=== PATIENT | male | born 1935 | race Two or more races ===

== ENCOUNTER 2018-02-12 18:49 | Inpatient (IN) | payer OTHER ==
--- NOTE | 2018-02-12 21:17 | PDOC ---
History of Present Illness - General Chief Complaint: Pain Stated Complaint: STOMACH PAIN Time Seen by Provider: 02/12/18 21:16 - History of Present Illness Initial Comments: 02/12/18 21:17 82 yo M with h/o HTN, HLD, abdominal surgery ( unspecified~2010), who p/w abdominal pain. Patient reports acute onset of mid-abdominal pain beginning at 1000 AM today. Unable to characterize pain. No identifiable triggers or alleviators. Normal daily BM with no BPR. Denies postprandial pain. Tolerating PO intake. Denies analgesic use. Patient denies N/V, cough, F,C, CP, SOB, urinary complaints, diarrhea, constipation, lightheadedness, weakness, sensory changes. PMHx: as noted above. Denies h/o colonoscopy. H/o trach, and h/o G tube placement with abdominal surgery 2010. Denies chronic NSAID use. ROS: as noted SHx: Distant smoking hx. Tobacco cessation 20 years ago. denies Etoh. Denies IVDA. Denies recent sick contacts or change in diet. Allergies:NKDA Past History - Past Medical History Allergies/Adverse Reactions: Allergies Allergy/AdvReac Type Severity Reaction Status Date / Time No Known Allergies Allergy Verified 02/12/18 19:06 Home Medications: Ambulatory Orders Aspirin [ASA -] 81 mg PO DAILY 02/13/18 Atorvastatin Ca [Lipitor] 10 mg PO HS 02/13/18 Cholecalciferol (Vitamin D3) [Vitamin D3] 50,000 unit PO WEEKLY 02/13/18 Losartan Potassium 50 mg PO DAILY 02/13/18 Metoprolol Succinate [Toprol Xl -] 50 mg PO DAILY 02/13/18 Tamsulosin HCl [Flomax] 0.4 mg PO DAILY 02/13/18 COPD: No HTN: Yes Hypercholesterolemia: Yes Other medical history: GALLIAN BARRE SYNDROM, BPH - Surgical History Abdominal Surgery: Yes (HX OF G.TUBE) Lung Surgery: No (HX OF TRACH) - Suicide/Smoking/Psychosocial Hx Smoking History: Never smoked Have you smoked in the past 12 months: No Information on smoking cessation initiated: No Hx Alcohol Use: No Drug/Substance Use Hx: No Substance Use Type: None Review of Systems - Review of Systems Comments:: 02/12/18 21:17 GENERAL/CONSTITUTIONAL: No fever or chills. No weakness. HEAD, EYES, EARS, NOSE AND THROAT: No change in vision. No ear pain or discharge. No sore throat. CARDIOVASCULAR: No chest pain or shortness of breath RESPIRATORY: No cough, wheezing, or hemoptysis. GASTROINTESTINAL: + Abdominal pain. No nausea, vomiting, diarrhea or constipation. GENITOURINARY: No dysuria, frequency, or change in urination. MUSCULOSKELETAL: No joint or muscle swelling or pain. No neck or back pain. SKIN: No rash NEUROLOGIC: No headache, vertigo, loss of consciousness, or change in strength/ sensation. ENDOCRINE: No increased thirst. No abnormal weight change HEMATOLOGIC/LYMPHATIC: No anemia, easy bleeding, or history of blood clots. ALLERGIC/IMMUNOLOGIC: No hives or skin allergy. *Physical Exam - Vital Signs Last Vital Signs Temp Pulse Resp BP Pulse Ox 98.6 F 52 L 18 146/78 100 02/12/18 19:07 02/12/18 19:07 02/12/18 19:07 02/12/18 19:07 02/12/18 19:07 - Physical Exam Comments: 02/12/18 21:17 GENERAL: Awake, alert, and fully oriented, in no acute distress HEAD: No signs of trauma, normocephalic, atraumatic EYES: PERRLA, EOMI, sclera anicteric, conjunctiva clear ENT: Hearing grossly normal, nares patent, oropharynx clear without exudates. Moist mucosa NECK: Normal ROM, supple, no lymphadenopathy, JVD, or masses LUNGS: No distress, speaks full sentences, clear to auscultation bilaterally HEART: Regular rate and rhythm, normal S1 and S2, no murmurs, rubs or gallops, peripheral pulses normal and equal bilaterally. ABDOMEN: 5 cm vertical midabodminal incision scar (healed), and LUQ 1 mm, horizontal incision scar ( healed). + Midabomdinal ttp. NDS, normoactive bowel sounds. No guarding, no rebound. No masses. Neg CVA ttp. EXTREMITIES : Normal inspection, Normal range of motion, no edema. No clubbing or cyanosis. SKIN: Warm, Dry, normal turgor, no rashes or lesions noted ED Treatment Course - LABORATORY CBC & Chemistry Diagram: 02/12/18 23:45 02/12/18 23:45 Medical Decision Making - Medical Decision Making 02/12/18 21:45 82 yo M with h/o HTN, HLD, abdominal surgery ( unspecified~2010), who p/w abdominal pain. HR ~52, vitals otherwise wnl, AF, A&Ox3. + Midabdominal ttp. Differential includes colitis, diverticulitis, cystitis, AAA, mesenteric ischemia. Low suspicion Ao dissection, SBO. ED Course: CBC, CMP, Lipase EKG NS, Tylenol 02/12/18 22:34 EKG sinus bradycardia 50, LBBB, with nml interval duration and axis. No acute DYLON, STD. 02/13/18 03:04 CT AP: Low grade small bowel obx. 02/13/18 04:03 Patient admitted to med/surg. Dr. Riojas. *DC/Admit/Observation/Transfer Diagnosis at time of Disposition: Small bowel obstruction - Discharge Dispostion Condition at time of disposition: Stable Decision to Admit order: Yes - Referrals Referrals: Cody Looney MD [Primary Care Provider] - - Patient Instructions - Post Discharge Activity
[2018-02-12] MEDS ORDERED: ACETAMINOPHEN 1000 MG/100 ML VIAL (NON FORMULARY) IVPB ONE (21:38)
[2018-02-12] MEDS ORDERED: SODIUM CHLORIDE 1,000 ML IV STA (21:38)
[2018-02-12] MEDS ORDERED: ACETAMINOPHEN INJECTION 100 ML IVPB ONE (23:50)
[2018-02-13] LABS: BASO % 0.5 % (0-2.0); EOS % 0.4 % (0-4.5); HEMATOCRIT 41.8 % (35.4-49); HEMOGLOBIN 14.1 GM/dL (11.7-16.9); LYMPH % 7.7 % (8-40); MCHC 33.6 g/dl (32.0-35.9); MEAN CELL VOLUME 92.1 fl (80-96); MEAN PLT VOLUME 10.1 fl (7.5-11.1); NEUT % 85.4 % (42.8-82.8); PLATELET COUNT 209 K/MM3 (134-434); RBC 4.54 M/mm3 (4.00-5.60); RDW 13.6 % (11.9-15.9); WHITE BLOOD COUNT 11.6 K/mm3 (4.0-10.0)
[2018-02-13 00:40] LABS: ALBUMIN 3.7 g/dl (3.4-5.0); ALK PHOS 93 U/L (45-117); ANION GAP 6 (8-16); BILIRUBIN,TOTAL 0.8 mg/dL (0.2-1.0); BLOOD UREA NITROGEN 19 mg/dL (7-18); CALCIUM 9.3 mg/dL (8.5-10.1); CHLORIDE 103 mmol/L (98-107); CO2 30 mmol/L (21-32); CREATININE 1.1 mg/dL (0.7-1.3); GLUCOSE,RANDOM 125 mg/dL (74-106); SGPT/ALT 23 U/L (12-78); SODIUM 139 mmol/L (136-145)
[2018-02-13 00:42] LABS: POTASSIUM 4.5 mmol/L (3.5-5.1)
[2018-02-13 00:43] LABS: SGOT/AST 28 U/L (15-37)
--- NOTE | 2018-02-13 01:00 | PDOC ---
Attending Attestation - [facility] HPI: 02/13/18 01:10 The patient is a 82 year old male with past medical history of HTN and HLD presents to the emergency department with abdominal pain. The patient presents with an onset of epigastric pain, without aggravation or alleviation factor, since 10:00 am today. Patient states he is able to have normal bowel movement, denies diarrhea, hematochezia or melena. Denies nausea or vomiting. Denies fever, chills, cough or a headache. Denies chest pain shortness of breath. Denies vertigo or dizziness. Denies weakness or numbness. Denies sick contact or change in diet. Denies prior colonoscopy. Denies GI follow up. Allergies: NKDA Social history: Former smoker, quit 20 years ago. Denies alcohol use. Denies recreational drug use. Surgical history: G-Tube and Trach. Abdominal scar, unable to recall what kind of surgery was performed. PCP: Cody Looney MD - Physicial Exam PE: 02/13/18 01:51 GENERAL: Well developed, well nourished. Awake and alert. No acute distress. HEENT: Normocephalic, atraumatic. PERRLA, EOMI. No conjunctival pallor. Sclera are non- icteric. Moist mucous membranes. Oropharynx is clear. NECK: Supple. Full ROM. No JVD. Carotid pulses 2+ and symmetric, without bruits. No thyromegaly. No lymphadenopathy. CARDIOVASCULAR: Regular rate and rhythm. No murmurs, rubs, or gallops. Distal pulses are 2+ and symmetric. PULMONARY: No evidence of respiratory distress. Lungs clear to auscultation bilaterally. No wheezing, rales or rhonchi. ABDOMINAL: Soft. Non-tender. Non-distended. No rebound or guarding. No organomegaly. Normoactive bowel sounds. MUSCULOSKELETAL Normal range of motion at all joints. No bony deformities or tenderness. No CVA tenderness. EXTREMITIES: No cyanosis. No clubbing. No edema. No calf tenderness. SKIN: Warm and dry. Normal capillary refill. No rashes. No jaundice. NEUROLOGICAL: Alert, awake, appropriate. PSYCHIATRIC: Cooperative. Good eye contact. Appropriate mood and affect. - Medical Decision Making 02/13/18 01:11 Documentation prepared by Christy Larson, acting as medical clinic manager for Adia Li MD. <Christy Larson - Last Filed: 02/13/18 01:51> - Resident Resident Name: Marcelo Sullivan - ED Attending Attestation I have performed the following: I have examined & evaluated the patient, The case was reviewed & discussed with the resident, I agree w/resident's findings & plan, Exceptions are as noted - HPI HPI: 02/13/18 00:58 82 yo male p/w diffuse abd pain. Visiting from [place] for past month. Has h/o prior abd surgery but it is not clear why he had previous abdominal surgeries - Medical Decision Making 02/13/18 02:[address] scan ,labs <Adia Li - Last Filed: 02/13/18 02:47>
[2018-02-13 02:51] LABS: URINE APPEARANCE CLEAR; URINE BILIRUBIN NEGATIVE (<2.0 mg/dL); URINE COLOR LTYELLOW; URINE GLUCOSE (UA) NEGATIVE (NEGATIVE); URINE KETONE TRACE (NEGATIVE); URINE LEUK ESTERASE NEGATIVE (NEGATIVE); URINE NITRITE NEGATIVE (NEGATIVE); URINE PROTEIN NEGATIVE (NEGATIVE); URINE UROBILINOGEN NEGATIVE mg/dL (0.2-1.0)
--- NOTE | 2018-02-13 05:56 | PN ---
Teaching Attending Note Name of Resident: Jayme Emerson ATTENDING PHYSICIAN STATEMENT I saw and evaluated the patient. I reviewed the resident's note and discussed the case with the resident. I agree with the resident's findings and plan as documented. SUBJECTIVE: Patient is an 82 year old man with past medical history of HTN, Guillain Hewitt syndrome, prior abdominal surgeries and HLD presenting to the ER with abdominal pain that started today. Pain is epigastric pain, without any aggravating or alleviating factors. Patient states he is able to have normal bowel movement, denies diarrhea, hematochezia or melena. He has no nausea, vomiting, chills, cough, chest pain or shortness of breath. [place] and does not remember why he had abdominal surgeries in the past. Has never had colonoscopy. OBJECTIVE: Alert and in no acute distress. Vital Signs Period Temp Pulse Resp BP Sys/Waldron Pulse Ox Last 24 Hr 97.5 F-98.6 F 52-56 18-18 143-146/77-78 97-100 HEENT: No Jaundice, eye redness or discharge, PERRLA, EOMI. Normocephalic, atraumatic. External ears are normal and hearing is grossly intact. No nasal discharge. Neck: Supple, nontender. No palpable adenopathy or thyromegaly. No JVD Chest: Good effort. Clear to auscultation and percussion. Heart: Regular. No S3, rub or murmur Abdomen: Surgical scars. Mild periumblical tenderness. Not distended, soft, and no HSM. No rebound or guarding. Normoactive bowel sounds. Ext: Peripheral pulses intact. No leg edema. Skin: Warm and dry. No petechiae, rash or ecchymosis. Neuro: Alert. Oriented x3. CN 2-12 grossly intact. Sensation grossly intact in all four extremities and DTR are symmetric. Home Medications Medication Instructions Recorded Aspirin [ASA -] 81 mg PO DAILY 02/13/18 Atorvastatin Ca [Lipitor] 10 mg PO HS 02/13/18 Cholecalciferol (Vitamin D3) 50,000 unit PO WEEKLY 02/13/18 [Vitamin D3] Losartan Potassium 50 mg PO DAILY 02/13/18 Metoprolol Succinate [Toprol Xl -] 50 mg PO DAILY 02/13/18 Tamsulosin HCl [Flomax] 0.4 mg PO DAILY 02/13/18 Abnormal Lab Results 02/12/18 02/12/18 02/13/18 23:45 23:45 02:22 WBC 11.6 H Neutrophils % 85.4 H Lymphocytes % 7.7 L Anion Gap 6 L BUN 19 H Random Glucose 125 H Urine Ketones Trace H ASSESSMENT AND PLAN: 1. Small Bowel Obstruction - CT scan shows low grade small bowel obstruction. Will consult surgery and monitor and treat with analgesic if pain becomes unbearable. His EKG shows bradycardia with LBBB - will repeat EKG to affirm that the changes are not dynamic. There no old EKGs available. Mild leukocytosis and hyperglycemia are likely due to stress. Will trend WBC, get PT/ INR and HbA1c. Give IN NS at 40 ml/hour and keep him NPO. 2. DVT prophylaxis - Heparin 5000u sq tid. 3. Advance directives - Full code
[2018-02-13] MEDS ORDERED: SODIUM CHLORIDE 1,000 ML IV SCH (06:15)
[2018-02-13] MEDS ORDERED: HEPARIN NA (PORCINE) 5,000 UNITS/ML 1ML VIAL SQ SCH (06:15)
[2018-02-13] MEDS ORDERED: PANTOPRAZOLE SODIUM 40 MG VIAL IVPUSH ONE (06:16)
--- NOTE | 2018-02-13 06:26 | HP ---
CHIEF COMPLAINT: PCP: HISTORY OF PRESENT ILLNESS: 82 yo M with h/o HTN, HLD, Angella hinson x2 in 2009 (he had trach and G-tube placed at that time), who p/w abdominal pain. Patient reports acute onset of mid -abdominal pain beginning yesterday morning. Pain was 10/10, sharp and generalized but more prom in mid periumbilical region. No identifiable triggers or alleviators. Normal daily BM with no BPR. Denies postprandial pain. Tolerating PO intake. Denies analgesic use. Patient denies fever,N/V, cough, F,C, CP, SOB, urinary complaints, diarrhea, constipation, lightheadedness, weakness, sensory changes. Pt has never had colonoscopy but was scheduled for one w/ dr rowley, however GI wanted cardio clearance from Dr Contreras PMHx: as noted above. Denies h/o colonoscopy. H/o trach, and h/o G tube placement with abdominal surgery 2010. Denies chronic NSAID use. SHx: Distant smoking hx. Tobacco cessation 20 years ago. denies Etoh. Denies IVDA. Denies recent sick contacts or change in diet. Lives [place] w/ [place] and [address] [place] course was notable for: (1)tylenol, 1L NS (2) (3) Recent Travel: PAST MEDICAL HISTORY: PAST SURGICAL HISTORY: Social History: Smoking: Alcohol: Drugs: Family History: Allergies No Known Allergies Allergy (Verified 02/12/18 19:06) HOME MEDICATIONS: Home Medications Medication Instructions Recorded Aspirin [ASA -] 81 mg PO DAILY 02/13/18 Atorvastatin Ca [Lipitor] 10 mg PO HS 02/13/18 Cholecalciferol (Vitamin D3) 50,000 unit PO WEEKLY 02/13/18 [Vitamin D3] Losartan Potassium 50 mg PO DAILY 02/13/18 Metoprolol Succinate [Toprol Xl -] 50 mg PO DAILY 02/13/18 Tamsulosin HCl [Flomax] 0.4 mg PO DAILY 02/13/18 REVIEW OF SYSTEMS reviewed in hpi PHYSICAL EXAMINATION Vital Signs - 24 hr 02/12/18 02/13/18 19:07 03:33 Temperature 98.6 F 97.5 F L Pulse Rate 52 L Pulse Rate [ 56 L Left] Respiratory 18 18 Rate Blood Pressure 146/78 Blood Pressure 143/77 [Left Arm] O2 Sat by Pulse 100 97 Oximetry (%) GENERAL: Awake, alert, and fully oriented, in no acute distress. HEAD: Normal with no signs of trauma. EYES: Pupils equal, round and reactive to light, extraocular movements intact, sclera anicteric, conjunctiva clear. No lid lag. EARS, NOSE, THROAT: Ears normal, nares patent, oropharynx clear without exudates. Moist mucous membranes. NECK: Normal range of motion, supple without lymphadenopathy, JVD, or masses. LUNGS: mild bibasilar crackles No wheezes, No accessory muscle use. HEART: Regular rate and rhythm, normal S1 and S2 without murmur, rub or gallop. ABDOMEN: Surgical scars midline Soft, nontender, not distended, normoactive bowel sounds, no guarding, no rebound, no masses. No hepatomegaly or splenomegaly. MUSCULOSKELETAL: Normal range of motion at all joints. No bony deformities or tenderness. No CVA tenderness. UPPER EXTREMITIES: 2+ pulses, warm, well-perfused. No cyanosis. No clubbing. No peripheral edema. LOWER EXTREMITIES: 2+ pulses, warm, well-perfused. No calf tenderness. No peripheral edema. NEUROLOGICAL: Cranial nerves II-XII intact. Normal speech. PSYCHIATRIC: Cooperative. Good eye contact. Appropriate mood and affect. SKIN: Warm, dry, normal turgor, no rashes or lesions noted, normal capillary refill. Laboratory Results - last 24 hr 02/12/18 02/12/18 02/12/18 23:45 23:45 23:45 WBC 11.6 H RBC 4.54 Hgb 14.1 Hct 41.8 MCV 92.1 MCH 31.0 MCHC 33.6 RDW 13.6 Plt Count 209 MPV 10.1 Absolute Neuts (auto) 9.9 Neutrophils % 85.4 H Lymphocytes % 7.7 L Monocytes % 6.0 Eosinophils % 0.4 Basophils % 0.5 Nucleated RBC % 0 Sodium 139 Potassium 4.5 Chloride 103 Carbon Dioxide 30 Anion Gap 6 L BUN 19 H Creatinine 1.1 Creat Clearance w eGFR > 60 Random Glucose 125 H Calcium 9.3 Total Bilirubin 0.8 AST 28 ALT 23 Alkaline Phosphatase 93 Total Protein 7.0 Albumin 3.7 Lipase 105 Urine Color Urine Appearance Urine pH Ur Specific Keyes Urine Protein Urine Glucose (UA) Urine Ketones Urine Blood Urine Nitrite Urine Bilirubin Urine Urobilinogen Ur Leukocyte Esterase 02/13/18 02:22 WBC RBC Hgb Hct MCV MCH MCHC RDW Plt Count MPV Absolute Neuts (auto) Neutrophils % Lymphocytes % Monocytes % Eosinophils % Basophils % Nucleated RBC % Sodium Potassium Chloride Carbon Dioxide Anion Gap BUN Creatinine Creat Clearance w eGFR Random Glucose Calcium Total Bilirubin AST ALT Alkaline Phosphatase Total Protein Albumin Lipase Urine Color Ltyellow Urine Appearance Clear Urine pH 7.0 Ur Specific Keyes 1.035 Urine Protein Negative Urine Glucose (UA) Negative Urine Ketones Trace H Urine Blood Negative Urine Nitrite Negative Urine Bilirubin Negative Urine Urobilinogen Negative Ur Leukocyte Esterase Negative ASSESSMENT/PLAN: 82 yo M with h/o HTN, HLD, Guiliane barre x2 in 2009 (he had trach and G-tube placed at that time), who p/w abdominal pain. CT shows SBO. Pt is currently stable but has leukocytosis and has not had a BM Small Bowel Obstruction - CT scan shows low grade small bowel obstruction. - consult surgery and monitor and treat with analgesic if pain becomes unbearable. -EKG shows bradycardia with LBBB, rpt EKG this morning showed no changes -mild leukocytosis and hyperglycemia are likely due to stress. -Will trend WBC, get PT/INR and HbA1c. -Give IN NS at 40 ml/hour and keep him NPO. -hold ACEi prior to surgery -protonix IV FEN - IV NS 40cc/hr - Monitor lytes as needed - NPO for possible surgery Prophylaxis - DVT: heparin SQ Disposition - admit medsur Code status - Full code Visit type - Emergency Visit Emergency Visit: Yes ED Registration Date: 02/13/18 Care time: The patient presented to the Emergency Department on the above date and was hospitalized for further evaluation of their emergent condition. - New Patient This patient is new to me today: Yes Date on this admission: 02/13/18 - Critical Care Critical Care patient: No Hospitalist Screening - Colonoscopy Questionnaire Colonoscopy Questionnaire: Colonoscopy Questionnaire - Patient: 50 - 75 years old and never had a screening colonoscopy: Yes History of colon or rectal polyps, or CA: Unknown History of IBD, Crohn's disease or UC: Unknown History of abdominal radiation therapy as a child: Unknown - Relative: 1 with colon or rectal CA, or polyps at age 60 or younger: Unknown Colon or rectal CA diagnosed at age 45 or younger: Unknown Multiple relatives with colon or rectal CA: Unknown - Outcome: Screening Result: Positive Screen
[2018-02-13] MEDS ORDERED: HEPARIN NA (PORCINE) 5,000 UNITS/ML 1ML VIAL ONE (06:27)
[2018-02-13] MEDS ORDERED: PANTOPRAZOLE SODIUM 40 MG VIAL ONE (06:30)
[2018-02-13] MEDS: SODIUM CHLORIDE 1,000 ML IV SCH ×2 (06:38→10:14)
[2018-02-13 08:08] LABS: BASO % 0.2 % (0-2.0); EOS % 1.2 % (0-4.5); HEMATOCRIT 41.8 % (35.4-49); LYMPH % 13.9 % (8-40); MCH 31.3 pg (25.7-33.7); MCHC 33.5 g/dl (32.0-35.9); MEAN CELL VOLUME 93.5 fl (80-96); MEAN PLT VOLUME 10.2 fl (7.5-11.1); MONO % 9.6 % (3.8-10.2); NEUT % 75.1 % (42.8-82.8); PLATELET COUNT 184 K/MM3 (134-434); RBC 4.46 M/mm3 (4.00-5.60); RDW 13.3 % (11.9-15.9); WHITE BLOOD COUNT 8.2 K/mm3 (4.0-10.0)
[2018-02-13 08:24] LABS: INR 1.08 (0.82-1.09); PROTHROMBIN TIME (PATIENT) 12.2 SEC (9.7-13.0)
[2018-02-13 08:26] LABS: ALBUMIN 3.6 g/dl (3.4-5.0); ALK PHOS 93 U/L (45-117); ANION GAP 7 (8-16); BILIRUBIN,TOTAL 0.7 mg/dL (0.2-1.0); BLOOD UREA NITROGEN 16 mg/dL (7-18); CALCIUM 8.5 mg/dL (8.5-10.1); CHLORIDE 108 mmol/L (98-107); CO2 28 mmol/L (21-32); CREATININE 0.8 mg/dL (0.7-1.3); GLUCOSE,RANDOM 81 mg/dL (74-106); MAGNESIUM 2.1 mg/dL (1.8-2.4); PHOSPHOROUS 3.2 mg/dL (2.5-4.9); POTASSIUM 4.2 mmol/L (3.5-5.1); SGOT/AST 17 U/L (15-37); SGPT/ALT 22 U/L (12-78); SODIUM 143 mmol/L (136-145); TOT PROT 6.6 g/dl (6.4-8.2)
[2018-02-13 08:27] LABS: ACTIVATED PTT 30.5 SECONDS (25.2-36.5)
[2018-02-13] MEDS ORDERED: ASPIRIN 81 MG CHEWABLE TABLETS PO SCH (10:00)
[2018-02-13] MEDS: TAMSULOSIN HCL 0.4 MG CAP.ER.24H (FP) PO SCH (10:13)
--- NOTE | 2018-02-13 11:39 | EKG ---
Test Reason : Blood Pressure : / mmHG Vent. Rate : 049 BPM Atrial Rate : 049 BPM P-R Int : 198 ms QRS Dur : 152 ms QT Int : 496 ms P-R-T Axes : 029 011 056 degrees QTc Int : 448 ms SINUS BRADYCARDIA LEFT BUNDLE BRANCH BLOCK ABNORMAL ECG WHEN COMPARED WITH ECG OF 12-FEB-2018 19:32, NO SIGNIFICANT CHANGE WAS FOUND Confirmed by YULIA KELLY MD ([id number]) on 02/13/2018 11:39:15 AM Referred By: Confirmed By:YULIA KELLY MD
--- NOTE | 2018-02-13 11:45 | EKG ---
Test Reason : Blood Pressure : / mmHG Vent. Rate : 050 BPM Atrial Rate : 050 BPM P-R Int : 202 ms QRS Dur : 150 ms QT Int : 472 ms P-R-T Axes : 037 048 073 degrees QTc Int : 430 ms SINUS BRADYCARDIA LEFT BUNDLE BRANCH BLOCK ABNORMAL ECG NO PREVIOUS ECGS AVAILABLE Confirmed by ROBIN CONWAY, YULIA ([id number]) on 02/13/2018 11:45:11 AM Referred By: Confirmed By:YULIA KELLY MD
--- NOTE | 2018-02-13 11:52 | CONSULT ---
- Consultation REQUESTING PROVIDER: CONSULT REQUEST: We have been asked to surgically evaluate this patient for SBO PCP:Maria Luz Leal HISTORY OF PRESENT ILLNESS: 82yo M presented to the ED with complaint of diffuse abdominal pain x [address] Pt [address] a [address] abd/pel done in the ED with had a wet read which showed SBO. Pt when seen by surgical team at bedside, stated that pain was completely resolved. Pt denies any n/v associated with the pain. Pt states last BM was yesterday and denies passing flatus since yesterday. Pt denies previous history of abd pain. Pt has surgical history of open G tube placement in 2009, but no other abd surgeries. Pt denies previous SBO. PMHx: HTN, Gullain-Huntsburg syndrome 2009 PSHx: tracheostomy, and gastrotomy tube placement Home Medications Medication Instructions Recorded Aspirin [ASA -] 81 mg PO DAILY 02/13/18 Atorvastatin Ca [Lipitor] 10 mg PO HS 02/13/18 Cholecalciferol (Vitamin D3) 50,000 unit PO WEEKLY 02/13/18 [Vitamin D3] Losartan Potassium 50 mg PO DAILY 02/13/18 Metoprolol Succinate [Toprol Xl -] 50 mg PO DAILY 02/13/18 Tamsulosin HCl [Flomax] 0.4 mg PO DAILY 02/13/18 Allergies Allergy/AdvReac Type Severity Reaction Status Date / Time No Known Allergies Allergy Verified 02/12/18 19:06 REVIEW OF SYSTEMS: CONSTITUTIONAL: Absent: fever, chills, diaphoresis, generalized weakness, malaise, loss of appetite, weight change CARDIOVASCULAR: Absent: chest pain, syncope, palpitations, irregular heart rate, lightheadedness , peripheral edema RESPIRATORY: Absent: cough, shortness of breath, dyspnea with exertion, wheezing, stridor, hemoptysis GASTROINTESTINAL: Absent: abdominal pain, abdominal distension, nausea, vomiting, diarrhea, constipation, melena, hematochezia GENITOURINARY: Absent: dysuria, frequency, urgency, hesitancy, hematuria, flank pain, genital pain MUSCULOSKELETAL: Absent: myalgia, arthralgia, joint swelling, back pain, neck pain SKIN: Absent: rash, itching, pallor HEMATOLOGIC/IMMUNOLOGIC: Absent: easy bleeding, easy bruising, lymphadenopathy NEUROLOGIC: Absent: headache, focal weakness, paresthesias, dizziness, unsteady gait, seizure, mental status changes, bladder or bowel incontinence PSYCHIATRIC: Absent: anxiety, depression, suicidal or homicidal ideation, hallucinations. PHYSICAL EXAM: GENERAL: Awake, alert, and fully oriented, in no acute distress. HEAD: Normal with no signs of trauma. EYES: PERRL, sclera anicteric, conjunctiva clear. NECK: Normal ROM, supple without lymphadenopathy, JVD, or masses. LUNGS: Clear to auscultation bilat anteriorly. No wheezes, and no crackles. No accessory muscle use. HEART: Regular rate and rhythm. No murmurs ABDOMEN: Soft, nontender, not distended, normoactive bowel sounds, no guarding, no rebound, no masses. Epigastric midline scar with hernia defect palpated on inferior aspect. MUSCULOSKELETAL: Normal ROM at all joints. No bony deformities or tenderness. No CVA tenderness. UPPER EXTREMITIES: 2+ pulses, warm, well-perfused. No cyanosis. Cap refill <2 seconds. No peripheral edema. LOWER EXTREMITIES: 2+ pulses, warm, well-perfused. No calf tenderness. No peripheral edema. NEUROLOGICAL: Normal speech, gait not observed. PSYCH: Cooperative. Good eye contact. Appropriate mood and affect. SKIN: Warm, dry, normal turgor, no rashes or lesions noted. Vital Signs Temperature 97.5 F L 02/13/18 08:50 Pulse Rate 50 L 02/13/18 08:50 Respiratory Rate 18 02/13/18 08:50 Blood Pressure 145/72 02/13/18 08:50 O2 Sat by Pulse Oximetry (%) 100 02/13/18 08:50 Lab Results WBC 8.2 K/mm3 (4.0-10.0) 02/13/18 07:48 RBC 4.46 M/mm3 (4.00-5.60) 02/13/18 07:48 Hgb 14.0 GM/dL (11.7-16.9) 02/13/18 07:48 Hct 41.8 % (35.4-49) 02/13/18 07:48 MCV 93.5 fl (80-96) 02/13/18 07:48 MCHC 33.5 g/dl (32.0-35.9) 02/13/18 07:48 RDW 13.3 % (11.9-15.9) 02/13/18 07:48 Plt Count 184 K/MM3 (134-434) 02/13/18 07:48 Sodium 143 mmol/L (136-145) 02/13/18 07:48 Potassium 4.2 mmol/L (3.5-5.1) 02/13/18 07:48 Chloride 108 mmol/L (98-107) H 02/13/18 07:48 Carbon Dioxide 28 mmol/L (21-32) 02/13/18 07:48 Anion Gap 7 (8-16) L 02/13/18 07:48 BUN 16 mg/dL (7-18) 02/13/18 07:48 Creatinine 0.8 mg/dL (0.7-1.3) 02/13/18 07:48 Random Glucose 81 mg/dL (74-106) D 02/13/18 07:48 Calcium 8.5 mg/dL (8.5-10.1) 02/13/18 07:48 Blood Type O POSITIVE 02/13/18 08:10 Antibody Screen Negative 02/13/18 08:10 INR 1.08 (0.82-1.09) 02/13/18 07:48 Problem List - Problems (1) Incisional hernia, incarcerated Assessment/Plan: Plan -pt appears to have an incisional hernia, which was most likely incarcerated with bowel. The hernia has appeared to have reduced and pt completely asymptomatic. -will get follow up abd x-ray and if umremarkable advance to clears -schedule pt for surgical repair of hernia tomorrow, pt agrees with plan -NPO after midnight, medical clearance Code(s): K43.0 - INCISIONAL HERNIA WITH OBSTRUCTION, WITHOUT GANGRENE
--- NOTE | 2018-02-13 12:21 | PN ---
Progress Note (short form) - Note Progress Note: Attending Surgeon Patient seen and evaluated; chart reviewed; concur w/ a/p as outlined by MARTY Forte; plan d/w patient and his daughter and in [place]; a/a/u by all ; r/b/t/a/'s to surgery discussed; for OR 02/14/18. Andrea Zhou MD FACS
[2018-02-13 13:22] VITALS: BMI 23.8
[2018-02-13] MEDS ORDERED: ATORVASTATIN CA 10 MG TABLET (FP) PO SCH (22:00)
[2018-02-14] MEDS ORDERED: BUPIVACAINE HCL/PF (5 MG/ML) 30 ML VIAL IJ ONE
[2018-02-14] MEDS: SODIUM CHLORIDE 1,000 ML IV SCH (09:46)
[2018-02-14] MEDS: TAMSULOSIN HCL 0.4 MG CAP.ER.24H (FP) PO SCH (09:46)
--- NOTE | 2018-02-14 10:14 | PN ---
Physical Exam: SUBJECTIVE: Patient seen and examined. Surgery later today. Denies pain. OBJECTIVE: Vital Signs Period Temp Pulse Resp BP Sys/Waldron Pulse Ox Last 24 Hr 97.1 F-98.4 F 56-65 20-20 107-152/66-70 98 General/Neuro: Awake, alert, oriented x 3 Pulm: Lungs CTA CV: S1, S2, rrr Abd: well-healed midline surgical scar, no palpable masses, not tender Ext: 2+ pulses, warm, well-perfused CBCD WBC 8.2 K/mm3 (4.0-10.0) 02/13/18 07:48 RBC 4.46 M/mm3 (4.00-5.60) 02/13/18 07:48 Hgb 14.0 GM/dL (11.7-16.9) 02/13/18 07:48 Hct 41.8 % (35.4-49) 02/13/18 07:48 MCV 93.5 fl (80-96) 02/13/18 07:48 MCHC 33.5 g/dl (32.0-35.9) 02/13/18 07:48 RDW 13.3 % (11.9-15.9) 02/13/18 07:48 Plt Count 184 K/MM3 (134-434) 02/13/18 07:48 MPV 10.2 fl (7.5-11.1) 02/13/18 07:48 CMP Sodium 143 mmol/L (136-145) 02/13/18 07:48 Potassium 4.2 mmol/L (3.5-5.1) 02/13/18 07:48 Chloride 108 mmol/L (98-107) H 02/13/18 07:48 Carbon Dioxide 28 mmol/L (21-32) 02/13/18 07:48 Anion Gap 7 (8-16) L 02/13/18 07:48 BUN 16 mg/dL (7-18) 02/13/18 07:48 Creatinine 0.8 mg/dL (0.7-1.3) 02/13/18 07:48 Creat Clearance w eGFR > 60 (>60) 02/13/18 07:48 Calcium 8.5 mg/dL (8.5-10.1) 02/13/18 07:48 Total Bilirubin 0.7 mg/dL (0.2-1.0) 02/13/18 07:48 AST 17 U/L (15-37) D 02/13/18 07:48 ALT 22 U/L (12-78) 02/13/18 07:48 Alkaline Phosphatase 93 U/L (45-117) 02/13/18 07:48 Total Protein 6.6 g/dl (6.4-8.2) 02/13/18 07:48 Albumin 3.6 g/dl (3.4-5.0) 02/13/18 07:48 Active Medications Generic Name Dose Route Start Last Admin Trade Name Freq PRN Reason Stop Dose Admin Atorvastatin Calcium 10 mg 02/13/18 22:00 02/13/18 21:18 Lipitor - PO 10 mg HS BARBIE Administration Ergocalciferol 50,000 unit 02/15/18 10:00 Drisdol - PO Q7D@1000 BARBIE Sodium Chloride 1,000 mls @ 40 mls/hr 02/13/18 06:26 02/14/18 09:46 Normal Saline - IV 40 mls/hr ASDIR BARBIE Administration Metoprolol Succinate 50 mg 02/13/18 10:00 02/14/18 09:46 Toprol Xl - PO 50 mg DAILY BARBIE Administration Tamsulosin HCl 0.4 mg 02/13/18 08:30 02/14/18 09:46 Flomax - PO 0.4 mg DAILY@0830 BARBIE Administration ASSESSMENT/PLAN 82 year-old male with a PMH signifiant for HTN, HLD, Guiliane [place] x 2 in 2009 (had trach and G-tube placed at that time, reversed), who p/w abdominal pain. Admitted for SBO and incarcerated incisional hernia. Small Bowel Obstruction --CT scan shows low grade small bowel obstruction, likely incarcerated incisional hernia --surgery today Hypertension --BP stable --continue Toprol XL Hyperlipidemia --continue atorvastatin FEN Fluids: NS @ 40mL/hr Electrolytes: replete as indicated Nutrition: NPO DVT prophylaxis: SCDs Dispo: continues to require inpatient care. Full code. Visit type - Emergency Visit Emergency Visit: Yes ED Registration Date: 02/13/18 Care time: The patient presented to the Emergency Department on the above date and was hospitalized for further evaluation of their emergent condition. - New Patient This patient is new to me today: Yes Date on this admission: 02/14/18 - Critical Care Critical Care patient: No
[2018-02-14] MEDS ORDERED: PROPOFOL 20 ML ONE (14:08)
[2018-02-14] MEDS ORDERED: MIDAZOLAM HCL 2 MG/2 ML SINGLE DOSE VIAL ONE (14:08)
[2018-02-14] MEDS ORDERED: ROCURONIUM BROMIDE 50 MG/5 ML VIAL ONE (14:08)
[2018-02-14] MEDS ORDERED: LIDOCAINE HCL/PF 2% SDV 5ML VIAL ONE (14:10)
[2018-02-14] MEDS ORDERED: BUPIVACAINE HCL/PF 0.5% (5MG/ML) 10 ML VIAL ONE (14:56)
[2018-02-14] MEDS ORDERED: DEXAMETHASONE SOD PHOSPHATE 4 MG/1 ML VIAL ONE (14:57)
[2018-02-14] MEDS ORDERED: KETOROLAC TROMETHAMINE 30 MG/1 ML VIAL ONE (15:25)
[2018-02-14] MEDS ORDERED: GLYCOPYRROLATE 0.2 MG/1 ML VIAL ONE (15:31)
[2018-02-14] MEDS ORDERED: NEOSTIGMINE METHYLSULFATE 0.5 MG/ML - 10 ML MDV ONE (15:32)
--- NOTE | 2018-02-14 15:52 | OP ---
Operative Note - Note: Operative Date: 02/14/18 Pre-Operative Diagnosis: Incarcerated incisional hernia Operation: Incarcerated incisional hernia repair Surgeon: Andrea Zhou Beamster: Sergo Forte Anesthesiologist/COMPLIANCE PARALEGAL: Donell Avila Anesthesia: General Estimated Blood Loss (mls): 10 Fluid Volume Replaced (mls): 600 Operative Report Dictated: Yes
[2018-02-14] MEDS ORDERED: PROMETHAZINE HCL 25 MG/1 ML VIAL IVPB PRN (15:53)
[2018-02-14] MEDS ORDERED: ONDANSETRON 4 MG/2 ML VIAL IVPUSH PRN (15:53)
--- NOTE | 2018-02-14 15:53 | SURG ---
Surgery Residential Insurance Inspector Note Residential Insurance Inspector: Sergo Forte PA-C Date of Service: 02/14/18 Diagnosis: Incarcerated incisional hernia Procedure: incarcerated incisional hernia repair I was present for the entirety of the operative procedure. For further detail, please refer to operative report.
[2018-02-14] MEDS ORDERED: LACTATED RINGERS SOLUTION 1,000 ML IV SCH (16:00)
[2018-02-14] MEDS ORDERED: SODIUM CHLORIDE 1,000 ML IV SCH (17:10)
[2018-02-14] MEDS ORDERED: ATORVASTATIN CA 10 MG TABLET (FP) PO SCH (22:00)
--- NOTE | 2018-02-15 08:13 | PN ---
Progress Note (short form) - Note Progress Note: POD #1 Alert. Sitting on edge of bed eating breakfast. No acute events since surgery per RN notes. Mild incisional tenderness. Adequate pain control via prn meds. He 's been oob and ambulating unassisted. Voiding spontaneously. Passing flatus. Denies n/v/f/c, CP or SOB. Last Vital Signs Temp Pulse Resp BP Pulse Ox 98.0 F 60 14 114/53 98 02/15/18 05:00 02/15/18 05:00 02/15/18 05:00 02/15/18 05:00 02/14/18 21:00 Gen: alert. nad Abd: midline incision with kenzie intact. LE: soft. nt bilat Problem List - Problems (1) Incisional hernia, incarcerated Assessment/Plan: Cont oob and ambulate Incentive spirometer Diet as tolerated Dressing changed on rounds. No further surgical intervention. If tolerates diet, is cleared for discharge from a surgery. --> patient wants to go home today On behalf of Dr. Zhou, thank you for the opportunity to participate in your patient's care Code(s): K43.0 - INCISIONAL HERNIA WITH OBSTRUCTION, WITHOUT GANGRENE
[2018-02-15 08:21] VITALS: BP 137/73; PULSE 51; TEMP 97.9
[2018-02-15] MEDS ORDERED: TAMSULOSIN HCL 0.4 MG CAP.ER.24H (FP) PO SCH (08:30)
[2018-02-15] MEDS ORDERED: PT OWN MED DRAWER 7, Y5N ONE (09:57)
[2018-02-15] MEDS ORDERED: ERGOCALCIFEROL (VITAMIN D2) 50,000 UNIT CAPSULE (FP) PO SCH (10:00)
[2018-02-15] MEDS: ERGOCALCIFEROL (VITAMIN D2) 50,000 UNIT CAPSULE (FP) PO SCH ×2 (10:15→11:20)
--- NOTE | 2018-02-15 12:22 | OP ---
DATE OF OPERATION: 02/14/2018 PREOPERATIVE DIAGNOSIS: Incisional hernia status post incarceration. POSTOPERATIVE DIAGNOSIS: Incisional hernia status post incarceration. PROCEDURE: Repair incisional hernia. SURGEON: Andrea Zhou MD ANALYSIS TESTER: Sergo Forte PA-C ANESTHESIA: General. OPERATIVE FINDINGS: There was an approximately 2-cm defect in the fascia of the upper midline incision approximately containing partially incarcerated omentum and preperitoneal fat. Distal to this defect, the fascia was attenuated and a smaller hernia was present. The rest of the findings were unremarkable. DESCRIPTION OF PROCEDURE: The patient was placed on the operating table in the supine position, and after the induction of general anesthesia and placement of sequential compression devices on the patients lower extremities, the abdomen was prepped with ChloraPrep and draped in sterile fashion. A time-out was taken. An incision made through the previous scar using a scalpel was taken down through subcutaneous tissue until the fascial defect was identified. The partially incarcerated preperitoneal fat was contained within the sac, which was opened, and the fat and sac excised and sent for pathological examination. Adhesed omentum to the abdominal wall was lysed using blunt and sharp dissection, and then, the defect extended distally to encompass approximately 3/4 of the old fascial incision to create one defect. Next, the defect was closed using continuous No. 1 Ti-Cron suture. Hemostasis was checked for and noted to be good, and the wound was copiously irrigated with sterile saline. Then, 0.5% Marcaine and 1% Xylocaine in equal concentration was infiltrated into the operative field, and the skin edges reapproximated using surgical kenzie. Dry sterile dressings were placed, and the procedure terminated at this point, and the patient aroused from general anesthesia and transferred to the post-anesthesia care unit in stable condition, awake and alert. ESTIMATED BLOOD LOSS: 10 mL. REPLACEMENTS: Crystalloid. DRAINS: None. SPECIMENS: Hernia sac and fat and omentum to Pathology. I, Andrea Zhou, was physically present in the operating room from the time the patient was placed on the operating table until he was transferred to the post-anesthesia care unit in my accompaniment. MD ESTEBAN Weems/[id number] MTDD
--- NOTE | 2018-02-15 12:27 | DS ---
Physical Examination Vital Signs: Vital Signs Temperature 97.9 F 02/15/18 08:20 Pulse Rate 51 L 02/15/18 08:20 Respiratory Rate 16 02/15/18 08:20 Blood Pressure 137/73 02/15/18 08:20 O2 Sat by Pulse Oximetry (%) 98 02/14/18 21:00 Labs: CBC, BMP 02/13/18 07:48 02/13/18 07:48 Discharge Summary Reason For Visit: SMALL BOWEL OBSTRUCTION Current Active Problems Incisional hernia, incarcerated (Acute) Small bowel obstruction (Acute) Condition: Improved - Instructions Diet, Activity, Other Instructions: Dr. Zhou Discharge Instructions Dear IRVIN HERNANDEZ, Post Operative Instructions Physical activity Resume your normal everyday activity as tolerated no heavy lifting or exercise until seen by your surgeon. You may walk unlimited amounts of and climb stairs. You may resume driving the car when you feel safe and comfortable behind the wheel. Wound care If you have a bandage, leave it on, and keep dry for 48 - 72 hours. After that time discard the outer bandage. If there are tapes on the skin under the outer bandage, leave them in place. They will peel off in the next 7 to 10 days. Do Not peel them off. You may shower 2 days after surgery. If there are tapes present on the skin, they can get wet. Diet There are no dietary restrictions. Eat healthy, high-fiber foods. Drink 6 to 8 glasses of liquid each day. This will assist in keeping your bowels are regular. Pain management You may take Tylenol or acetaminophen or Ibuprofen (for example, Motrin, Advil etc.) Any pain prescription medication ordered should be taken as prescribed for moderate to severe pain. Call Dr. Zhou for any of the following: Severe pain not relieved by medication Fever of 101 or higher Excessive bleeding or drainage on dressing Inability to urinate Call the office at [phone] for a post operative appointment in 7 - 10 days. Referrals: Cody Looney MD [Primary Care Provider] - 1 Week Andrea Zhou MD [Staff Physician] - (Please follow-up with surgery within 2 week for your post-op visit and staple removal ) Disposition: HOME - Home Medications Comprehensive Discharge Medication List: Ambulatory Orders Aspirin [ASA -] 81 mg PO DAILY 02/13/18 Atorvastatin Ca [Lipitor] 10 mg PO HS 02/13/18 Cholecalciferol (Vitamin D3) [Vitamin D3] 50,000 unit PO WEEKLY 02/13/18 Losartan Potassium 50 mg PO DAILY 02/13/18 Metoprolol Succinate [Toprol XL -] 50 mg PO DAILY 02/13/18 Tamsulosin HCl [Flomax -] 0.4 mg PO DAILY 02/13/18
--- NOTE | 2018-02-19 09:54 | PATH ---
Surgical Pathology Report Patient Name: IRVIN ROTH Med. Rec. #: [id number] /Age/Gender: 1935 (Age: 82) / M Account: [id number] Location: [address] [place] [address]/[facility] Taken: 02/14/2018 Received: 02/15/2018 Reported: 02/19/2018 Physicians: Ian Zhou MD Specimen(s) Received HERNIA SAC AND FAT Clinical History Incisional hernia Final Diagnosis HERNIA SAC AND FAT, REPAIR: HERNIA SAC AND ADIPOSE TISSUE. Electronically Signed Addis Pérez M.D. Gross Description Received in formalin labeled "hernia sac and fat," is a 4.5 x 3.0 x 1.3 cm portion of yellow, lobulated adipose tissue with attached fibromembranous tissue. No areas of hemorrhage or necrosis are identified. Label Maker sections are submitted in one cassette. /02/15/2018 saudi/02/15/2018
== END 2018-02-15 14:12 | disposition home or self-care (01) | DRG 227 ==
LOC: JER 18:49 → JERBED 02-13 03:07 → UNDOADMIN 02-13 04:14 → JERBED 02-13 04:14 → J6S 02-13 09:40
PROVIDERS: ADMIT Internal Medicine; ATTEND Registered Nurse
PROC: 0DNU0ZZ Release Omentum, Open Approach (ICD-10-PCS; 2018-02-14)
PROC: 0WQF0ZZ Repair Abdominal Wall, Open Approach (ICD-10-PCS; principal; 2018-02-14 14:00)
DX: K43.0 Incisional hernia with obstruction, without gangrene (principal); I44.7 Left bundle-branch block, unspecified; E78.5 Hyperlipidemia, unspecified; I10 Essential (primary) hypertension; K66.0 Peritoneal adhesions (postprocedural) (postinfection); R73.9 Hyperglycemia, unspecified; D72.829 Elevated white blood cell count, unspecified; G61.0 Guillain-Barre syndrome
CPT/HCPCS: 36415; 71046-TC-FY; 74177-TC; 80053; 81003; 83036; 83690; 83735; 84100; 85025; 85610; 85730; 86850; 86900; 86901; 87086; 88302-TC; 93005; 93010; 99282-25; J0131; J1644; J7030

== ENCOUNTER 2018-08-19 01:55 | Emergency (ER) | payer OTHER ==
--- NOTE | 2018-08-19 02:09 | PDOC ---
History of Present Illness - General Chief Complaint: SIRS, Suspected/Possible Stated Complaint: SICK/NOT FEELING WELL Time Seen by Provider: 08/19/18 02:09 History Source: Patient, Family (Son) Exam Limitations: No Limitations - History of Present Illness Initial Comments: Pt is an 82 yo M, with PMH of HTN, HLD, Guillain-[place] (post viral infection, 2005), and SBO/incarcerated hernia (January 2018), who is presenting with complaints of rigors and "not feeling well" since 11 pm this evening. Pt went to urinate in the bathroom, and suddenly felt light-headed. He went back to the bedroom to lie down, and his family members called EMS. Pt states he has baseline mild dysuria, which is being treated with flomax (for BPH). Pt did not take any pain control medication prior to presentation. Pt denies any headache, vision changes, syncope, chest pain, palpitations, SOB, nausea/vomiting, abdominal pain, hematuria/urgency/frequency, diarrhea/constipation, or leg swelling. Social: Remote cigarette smoker history, denies alcohol or drug use. Pt denies any recent travel or sick contacts. Surgical: SBO/incarcerated hernia repair. Family: no relevant history. 08/19/18 03:38 Past History - Travel Traveled outside of the country in the last 30 days: No Close contact w/someone who was outside of country & ill: No - Past Medical History Allergies/Adverse Reactions: Allergies Allergy/AdvReac Type Severity Reaction Status Date / Time No Known Allergies Allergy Verified 08/19/18 02:42 Home Medications: Ambulatory Orders Aspirin [ASA -] 81 mg PO DAILY 02/13/18 Atorvastatin Ca [Lipitor] 10 mg PO HS 02/13/18 Cholecalciferol (Vitamin D3) [Vitamin D3] 50,000 unit PO WEEKLY 02/13/18 Losartan Potassium 50 mg PO DAILY 02/13/18 Metoprolol Succinate [Toprol XL -] 50 mg PO DAILY 02/13/18 Tamsulosin HCl [Flomax -] 0.4 mg PO DAILY 02/13/18 Cardiac Disorders: No Hx Myocardial Infarction: No HTN: Yes Hypercholesterolemia: Yes - Surgical History Abdominal Surgery: Yes (Hx. of Gastrostomy tube 2009) GI Surgery: Yes (SBO) Lung Surgery: No (HX OF TRACH) - Suicide/Smoking/Psychosocial Hx Smoking History: Never smoked Have you smoked in the past 12 months: No Hx Alcohol Use: No Drug/Substance Use Hx: No Substance Use Type: None Hx Substance Use Treatment: No Review of Systems - Review of Systems Able to Perform ROS?: Yes Is the patient limited Maori proficient: No Constitutional: Yes: Chills, Fever (subjective/rigors), Weight Stable. No: Diaphoresis, Loss of Appetite, Malaise, Night Sweats, Weakness HEENTM: No: Blurred Vision, Double Vision, Nose Congestion, Throat Pain, Difficulty Swallowing Respiratory: No: Cough, Orthopnea, Shortness of Breath Cardiac (ROS): Yes: Lightheadedness. No: Chest Pain, Edema, Irregular Heart Rate, Palpitations, Syncope, Chest Tightness ABD/GI: No: Abd. Pain w/ defecation, Blood Streaked Bowels, Constipated, Diarrhea, Nausea, Poor Appetite, Poor Fluid Intake, Rectal Bleeding, Vomiting, Abdominal cramping : Yes: Burning, Dysuria (baseline, BPH). No: Discharge, Frequency, Flank Pain , Hematuria, Incontinence, Pain, Urgency Musculoskeletal: No: Back Pain, Joint Pain Integumentary: No: Rash Neurological: No: Headache, Numbness, Weakness, Unsteady Gait, Ataxia, Dizziness Psychiatric: No: Sleep Pattern Change, Change in Appetite Endocrine: No: Increased Urine, Change in Weight Hematologic/Lymphatic: No: Anemia, Blood Clots, Easy Bleeding, Easy Bruising All Other Systems: Reviewed and Negative *Physical Exam - Physical Exam General Appearance: Yes: Nourished, Appropriately Dressed. No: Apparent Distress HEENT: positive: EOMI, JOÃO, Normal ENT Inspection, Normal Voice, Pharynx Normal , Hearing Grossly Normal. negative: Scleral Icterus (R), Scleral Icterus (L), Pharyngeal Erythema, Tonsillar Exudate, Tonsillar Erythema, Rhinorrhea Neck: positive: Trachea midline, Normal Thyroid, Supple. negative: Tender, Rigid, Lymphadenopathy (R), Lymphadenopathy (L), Rigidity Respiratory/Chest: positive: Lungs Clear, Normal Breath Sounds. negative: Chest Tender, Respiratory Distress, Accessory Muscle Use, Crackles, Wheezing Cardiovascular: positive: Regular Rhythm, Regular Rate, S1, S2. negative: Edema , JVD, Murmur Vascular Pulses: Carotid (R): 4+, Carotid (L): 4+ Gastrointestinal/Abdominal: positive: Normal Bowel Sounds, Flat, Soft. negative : Tender, Organomegaly, Pulsatile Mass, Distended, Guarding, Rebound Male Genitalia: positive: normal genitalia. negative: testicular tenderness, inguinal hernia Rectal Exam: positive: deferred Lymphatic: negative: Adenopathy, Tenderness Musculoskeletal: positive: Normal Inspection. negative: CVA Tenderness, Vertebral Tenderness Extremity: positive: Normal Capillary Refill, Normal Inspection, Normal Range of Motion, Pelvis Stable. negative: Tender, Pedal Edema Integumentary: positive: Normal Color, Dry, Warm. negative: Jaundice, Clammy, Diaphoresis, Rash Neurologic: positive: marble machine tender II-XII NML intact, Fully Oriented, Alert, Normal Mood/ Affect, Normal Response, Motor Strength 5/5. negative: EOM Palsy, Facial Droop , Sensory Deficit, Finger to Nose, Confused ED Treatment Course - LABORATORY CBC & Chemistry Diagram: 08/19/18 04:30 08/19/18 04:30 Medical Decision Making - Medical Decision Making Pt was seen at bedside, also will be seen by attending Dr. Bettencourt. Pt presenting with complaints of rigors and "not feeling well" since 11 pm this evening. Pt went to urinate in the bathroom, and suddenly felt light-headed. He went back to the bedroom to lie down, and his family members called EMS. Pt states he has baseline mild dysuria, which is being treated with flomax (for BPH). Pt did not take any pain control medication prior to presentation. Pt denies any headache, vision changes, syncope, chest pain, palpitations, SOB, nausea/vomiting, abdominal pain, hematuria/urgency/frequency, diarrhea/constipation, or leg swelling. Vitals stable, pt afebrile. PE showed pt alert and oriented. marble machine tender generally intact, muscular strength and sensation intact. Clear heart and lung sounds, no JVD, b/l pedal edema, or heart murmur. No abdominal or CVA tenderness to palpation, no rebound, no guarding. Considering sepsis (UTI, viral infection/influenza), vs electrolyte abnormalities vs ACS. Ordered work-up including CBC, CMP, lactic, Mg, cardiac profile, ECG, UA, urine culture. Provided 500 mg IV NS for improvement of dehydration. Will continue to reassess pt and monitor for symptomatic improvement. 08/19/18 03:20 Pt sleeping comfortably. Pt provided urine for UA. CBC WNL, no increased WBC Lactic 1.7 Pending UA and CMP. 08/19/18 05:34 CMP generally WNL. Mg 1.7. UA negative for infection. Providing 2 g IV Mg (repletion). Ordered PA/Lat chest x-ray to r/o infection/ infiltrates. 08/19/18 06:01 Chest x-ray negative for acute pathology. Considering normal lab results and imaging, pt can be discharged to home with follow-up. Pt advised to follow-up with PCP in 1-2 days. Strict return precautions provided with pt understanding. 08/19/18 06:47 *DC/Admit/Observation/Transfer Diagnosis at time of Disposition: Light headedness, Pre-syncope - Discharge Dispostion Disposition: HOME Condition at time of disposition: Good Decision to Admit order: No - Referrals Referrals: Cody Looney MD [Primary Care Provider] - - Patient Instructions Printed Discharge Instructions: DI for Syncope in Adults (Fainting) Additional Instructions: You were seen in the ER today for light-headedness. The results of your labs and imaging today were normal. Please follow-up with your primary care doctor within 1-2 days to discuss your visit and make sure your symptoms have improved. Please return to the ER if you have any worsening light-headedness or dizziness, development of fevers or chills that does not improve with tylenol or ibuprofen, loss of consciousness, inability to tolerate food or fluids, confusion, or any other concerns. - Post Discharge Activity
--- NOTE | 2018-08-19 02:26 | PDOC ---
Attending Attestation - Resident Resident Name: Kayce Lomeli - ED Attending Attestation I have performed the following: I have examined & evaluated the patient, The case was reviewed & discussed with the resident, I agree w/resident's findings & plan - HPI HPI: 08/19/18 06:14 Pt comes with generalized malaise. No clear complaints. - Physicial Exam PE: 08/19/18 06:15 Agree with resident. Pt has minimal pitting edema in the ankles. Rest of exam normal. Pt looks great. - Medical Decision Making 08/19/18 06:15 Labs normal; EKG LBBB (old) flu culture normal; UA normal VSS CXR will be done. IF CXR NL, he will go home. 08/19/18 06:26 CXR normal; he will be discharged home
[2018-08-19 02:42] VITALS: BP 126/77; PULSE 64; TEMP 97; BMI 26.6
[2018-08-19] MEDS ORDERED: SODIUM CHLORIDE 500 ML IV STA (03:21)
[2018-08-19 04:46] LABS: BASO % 0.3 % (0-2.0); EOS % 0.6 % (0-4.5); HEMATOCRIT 37.5 % (35.4-49); LYMPH % 11.4 % (8-40); MCH 31.7 pg (25.7-33.7); MCHC 34.6 g/dl (32.0-35.9); MEAN CELL VOLUME 91.5 fl (80-96); MEAN PLT VOLUME 10.1 fl (7.5-11.1); MONO % 12.1 % (3.8-10.2); NEUT % 75.6 % (42.8-82.8); PLATELET COUNT 219 K/MM3 (134-434); RDW 13.4 % (11.9-15.9); WHITE BLOOD COUNT 7.3 K/mm3 (4.0-10.0)
[2018-08-19 05:03] LABS: INR 1.1 (0.83-1.09)
[2018-08-19 05:38] LABS: ALBUMIN 3.3 g/dl (3.4-5.0); ALK PHOS 80 U/L (45-117); ANION GAP 10 MMOL/L (8-16); BILIRUBIN,TOTAL 0.7 mg/dL (0.2-1); BLOOD UREA NITROGEN 16 mg/dL (7-18); CALCIUM 8.6 mg/dL (8.5-10.1); CHLORIDE 107 mmol/L (98-107); CO2 27 mmol/L (21-32); CREATININE 1.1 mg/dL (0.55-1.3); GLUCOSE,RANDOM 95 mg/dL (74-106); MAGNESIUM 1.7 mg/dL (1.8-2.4); POTASSIUM 3.8 mmol/L (3.5-5.1); SGOT/AST 29 U/L (15-37); SGPT/ALT 36 U/L (13-61); SODIUM 144 mmol/L (136-145); TOT PROT 6.2 g/dl (6.4-8.2)
[2018-08-19 05:39] LABS: URINE APPEARANCE CLEAR; URINE BILIRUBIN NEGATIVE (<2.0 mg/dL); URINE COLOR LTYELLOW; URINE GLUCOSE (UA) NEGATIVE (NEGATIVE); URINE KETONE 1+ (NEGATIVE); URINE LEUK ESTERASE NEGATIVE (NEGATIVE); URINE NITRITE NEGATIVE (NEGATIVE); URINE PROTEIN NEGATIVE (NEGATIVE); URINE UROBILINOGEN NEGATIVE mg/dL (0.2-1.0)
[2018-08-19] MEDS ORDERED: MAGNESIUM SULF 50% (8.12 MEQ/2 ML-1 GM VIAL) IVPB ONE (06:01)
[2018-08-19] MEDS ORDERED: MAGNESIUM 1GM/D5W - 2 GM/200 ML IVPB IVPB ONE (06:38)
--- NOTE | 2018-08-19 11:09 | EKG ---
Test Reason : Blood Pressure : / mmHG Vent. Rate : 073 BPM Atrial Rate : 073 BPM P-R Int : 180 ms QRS Dur : 154 ms QT Int : 454 ms P-R-T Axes : 050 036 065 degrees QTc Int : 500 ms NORMAL SINUS RHYTHM LEFT BUNDLE BRANCH BLOCK ABNORMAL ECG WHEN COMPARED WITH ECG OF 13-FEB-2018 05:55, VENT. RATE HAS INCREASED BY 24 BPM NOTE QT Confirmed by SHILA FREY MD ([id number]) on 08/19/2018 11:09:14 AM Referred By: Confirmed By:SHILA FREY MD
== END 2018-08-19 07:13 | disposition home or self-care (01) ==
LOC: JER 01:55
PROC: 3E033GC Introduction of Other Therapeutic Substance into Peripheral Vein, Percutaneous Approach (ICD-10-PCS; principal; 2018-08-19)
DX: R55 Syncope and collapse (principal); I10 Essential (primary) hypertension; E78.00 Pure hypercholesterolemia, unspecified; N40.0 Benign prostatic hyperplasia without lower urinary tract symptoms; Z87.19 Personal history of other diseases of the digestive system
CPT/HCPCS: 36415; 71046-TC-FY; 80053; 81003; 82550; 83605; 83735; 84484; 85025; 85610; 86850; 86900; 86901; 87086; 87804; 93005; 93010; 96374; 99281-25; J7030

== ENCOUNTER 2021-12-21 17:08 | Inpatient (IN) | payer OTHER ==
[2021-12-21] MEDS ORDERED: FAMOTIDINE 20 MG/50 ML IVPB 20 MG in PREMIX 50 IVPB ONE (17:51)
[2021-12-21] MEDS ORDERED: MAG HYDROX/AL HYDROX/SIMETH -MYLANTA- ORAL SUSPENSION PO ONE (17:51)
[2021-12-21] MEDS ORDERED: FAMOTIDINE 20 MG/50 ML IVPB 20 MG/50 ML MG IVPB ONE (18:11)
[2021-12-21 18:34] LABS: BASO % 0.1 % (0-2.0); EOS % 0.4 % (0-4.5); HEMATOCRIT 41.1 % (35.4-49); LYMPH % 5.3 % (8-40); MCH 28.8 pg (25.7-33.7); MCHC 34.1 g/dl (32.0-35.9); MEAN CELL VOLUME 84.5 fl (80-96); MEAN PLT VOLUME 9.3 fl (7.5-11.1); MONO % 6.1 % (3.8-10.2); NEUT % 88.1 % (42.8-82.8); PLATELET COUNT 339 10^3/uL (134-434); RBC 4.86 M/mm3 (4.00-5.60); RDW 14.1 % (11.9-15.9); WHITE BLOOD COUNT 9.9 K/mm3 (4.0-10.0)
[2021-12-21] MEDS ORDERED: MAG HYDROX/AL HYDROX/SIMETH 30 ML UNIT-DOSE CUP ONE (18:45)
[2021-12-21 19:09] LABS: LACTIC ACID 2.9 mmol/L (0.4-2.0)
[2021-12-21] MEDS ORDERED: SODIUM CHLORIDE 500 ML IV STA ×2 (21:08→23:05)
[2021-12-21 21:27] LABS: CHLORIDE 102 mmol/L (98-107); SODIUM 140 mmol/L (136-145)
[2021-12-21 21:30] LABS: CALCIUM 8.8 mg/dL (8.5-10.1); GLUCOSE,RANDOM 184 mg/dL (74-106); LIPASE 1007 U/L (73-393)
[2021-12-21 21:31] LABS: ALBUMIN 3.2 g/dl (3.4-5.0); BLOOD UREA NITROGEN 24.1 mg/dL (7-18); CO2 30 mmol/L (21-32)
[2021-12-21 21:33] LABS: CREATININE 1.3 mg/dL (0.55-1.3); SGOT/AST 488 U/L (15-37); SGPT/ALT 305 U/L (13-61)
[2021-12-21 21:35] LABS: BILIRUBIN,TOTAL 2.2 mg/dL (0.2-1)
[2021-12-21 21:36] LABS: ALK PHOS 107 U/L (45-117)
[2021-12-21 21:37] LABS: ANION GAP 8 MMOL/L (8-16)
[2021-12-21] MEDS ORDERED: KCL 10 MEQ IVPB 10 MEQ/100 ML INFUS.BAG IVPB SCH (21:45)
[2021-12-21] MEDS ORDERED: KCL 10 MEQ IVPB 20 MEQ/200 ML INFUS.BAG IVPB ONE (23:22)
[2021-12-21 23:56] LABS: EPI CELLS 5 /uL (0-25.1); HYALINE CASTS 1 /uL (0-3.1); URINE APPEARANCE CLEAR; URINE BACTERIA 35 /uL (0-1359); URINE BILIRUBIN NEGATIVE (NEGATIVE); URINE COLOR DK YELLOW; URINE GLUCOSE (UA) NEGATIVE (NEGATIVE); URINE KETONE NEGATIVE (NEGATIVE); URINE LEUK ESTERASE 1+ (NEGATIVE); URINE NITRITE NEGATIVE (NEGATIVE); URINE PROTEIN NEGATIVE (NEGATIVE); URINE RBC 6 /uL (0-23.9); URINE WBC 53 /uL (0-25.8)
[2021-12-22] MEDS ORDERED: ONDANSETRON 4 MG/2 ML VIAL IVPUSH PRN (00:29)
[2021-12-22] MEDS ORDERED: KCL 10 MEQ IVPB 10 MEQ/100 ML INFUS.BAG IVPB SCH (00:30)
[2021-12-22 02:10] LABS: CALCIUM 8.4 mg/dL (8.5-10.1)
[2021-12-22 02:11] LABS: BLOOD UREA NITROGEN 21.3 mg/dL (7-18)
[2021-12-22 02:14] LABS: CREATININE 1.2 mg/dL (0.55-1.3)
[2021-12-22 02:15] LABS: BILIRUBIN,TOTAL 2.8 mg/dL (0.2-1); TOT PROT 5.6 g/dl (6.4-8.2)
[2021-12-22] MEDS: LACTATED RINGERS SOLUTION 1,000 ML IV SCH ×2 (04:05→10:38)
[2021-12-22] MEDS: INSULIN SLIDING SCALE (NOVOLOG) 1 VIAL SQ SCH ×3 (06:57→17:21)
[2021-12-22] MEDS ORDERED: PNEUMOC 20-VAL CONJ-DIP CRM/PF 0.5 ML SYRINGE IM ONE (09:00)
[2021-12-22 09:32] LABS: BASO % 0.7 % (0-2.0); EOS % 1.8 % (0-4.5); HEMATOCRIT 37.5 % (35.4-49); LYMPH % 12.5 % (8-40); MCH 29.4 pg (25.7-33.7); MCHC 34.7 g/dl (32.0-35.9); MEAN CELL VOLUME 84.6 fl (80-96); MEAN PLT VOLUME 9.6 fl (7.5-11.1); MONO % 10.8 % (3.8-10.2); NEUT % 74.2 % (42.8-82.8); PLATELET COUNT 339 10^3/uL (134-434); RBC 4.43 M/mm3 (4.00-5.60); RDW 14.2 % (11.9-15.9); WHITE BLOOD COUNT 7.3 K/mm3 (4.0-10.0)
[2021-12-22 09:58] LABS: CHLORIDE 102 mmol/L (98-107); SODIUM 141 mmol/L (136-145)
[2021-12-22 10:01] LABS: CHOLESTEROL 143 mg/dL (50-200)
[2021-12-22 10:02] LABS: TRIGLYCERIDES 72 mg/dL (0-150)
[2021-12-22 10:03] LABS: LDL CHOLESTEROL (ONLY SJRH) 98 mg/dL (5-100)
[2021-12-22 10:04] LABS: HDL CHOLESTEROL 48 mg/dL (40-60)
[2021-12-22 10:13] LABS: ALBUMIN 3.2 g/dl (3.4-5.0); CALCIUM 8.5 mg/dL (8.5-10.1); CO2 31 mmol/L (21-32); MAGNESIUM 2.4 mg/dL (1.8-2.4)
[2021-12-22 10:16] LABS: CREATININE 1.2 mg/dL (0.55-1.3); GLUCOSE,RANDOM 76 mg/dL (74-106); SGOT/AST 561 U/L (15-37); SGPT/ALT 533 U/L (13-61)
[2021-12-22 10:17] LABS: BILIRUBIN,TOTAL 2.9 mg/dL (0.2-1); TOT PROT 5.8 g/dl (6.4-8.2)
[2021-12-22 10:19] LABS: ALK PHOS 139 U/L (45-117); PHOSPHOROUS 2.7 mg/dL (2.5-4.9)
[2021-12-22] MEDS ORDERED: cefTRIAXone SODIUM 1 GM VIAL ONE (10:21)
[2021-12-22] MEDS ORDERED: DEXTROSE 5%-WATER - 50 ML IVPB ONE (10:21)
[2021-12-22 10:22] LABS: ANION GAP 8 MMOL/L (8-16)
[2021-12-22] MEDS: CEFTRIAXONE 1 GM in DEXTROSE 5%-WATER - 50 ML IVPB SCH (10:36)
[2021-12-22] MEDS: ENOXAPARIN NA (PORCINE) 40 MG/0.4 ML DISP.SYRIN SQ SCH (10:38)
[2021-12-22] MEDS ORDERED: POTASSIUM CHLORIDE TABS 20 MEQ TABLET.ER (FP) PO ONE (15:02)
[2021-12-22] MEDS: POTASSIUM CHLORIDE 40 MEQ in DEXTROSE 5%-LACTATED RINGERS 980 ML IV SCH (15:59)
[2021-12-23] MEDS: POTASSIUM CHLORIDE 40 MEQ in DEXTROSE 5%-LACTATED RINGERS 980 ML IV SCH ×4 (01:30→17:24)
[2021-12-23] MEDS: INSULIN SLIDING SCALE (NOVOLOG) 1 VIAL SQ SCH ×4 (06:33→21:52)
[2021-12-23] MEDS ORDERED: DEXTROSE 5%-WATER - 50 ML IVPB ONE (08:53)
[2021-12-23] MEDS ORDERED: cefTRIAXone SODIUM 1 GM VIAL ONE (08:53)
[2021-12-23] MEDS: CEFTRIAXONE 1 GM in DEXTROSE 5%-WATER - 50 ML IVPB SCH (09:32)
[2021-12-23] MEDS: ENOXAPARIN NA (PORCINE) 40 MG/0.4 ML DISP.SYRIN SQ SCH (09:33)
[2021-12-23] MEDS ORDERED: PANTOPRAZOLE SODIUM 40 MG VIAL IVPUSH SCH (10:00)
[2021-12-23 10:08] LABS: EOS % 2.9 % (0-4.5); HEMATOCRIT 39.1 % (35.4-49); LYMPH % 17.5 % (8-40); MCH 28.4 pg (25.7-33.7); MCHC 33.2 g/dl (32.0-35.9); MEAN CELL VOLUME 85.4 fl (80-96); MONO % 10.7 % (3.8-10.2); NEUT % 67.9 % (42.8-82.8); PLATELET COUNT 369 10^3/uL (134-434); RBC 4.57 M/mm3 (4.00-5.60); RDW 14.5 % (11.9-15.9); WHITE BLOOD COUNT 5.7 K/mm3 (4.0-10.0)
[2021-12-23 10:44] LABS: ALBUMIN 3.2 g/dl (3.4-5.0); CALCIUM 9.1 mg/dL (8.5-10.1)
[2021-12-23 10:45] LABS: BLOOD UREA NITROGEN 11.1 mg/dL (7-18); MAGNESIUM 2.2 mg/dL (1.8-2.4)
[2021-12-23 10:47] LABS: PHOSPHOROUS 2.1 mg/dL (2.5-4.9)
[2021-12-23 10:48] LABS: BILIRUBIN,DIRECT 0.5 mg/dL (0.0-0.2)
[2021-12-23 10:49] LABS: BILIRUBIN,TOTAL 1.4 mg/dL (0.2-1); TOT PROT 5.9 g/dl (6.4-8.2)
[2021-12-23] MEDS ORDERED: SODIUM CHLORIDE 1,000 ML IV STA (11:31)
[2021-12-24] MEDS: INSULIN SLIDING SCALE (NOVOLOG) 1 VIAL SQ SCH ×4 (06:10→21:45)
[2021-12-24 07:42] LABS: ALBUMIN 2.6 g/dl (3.4-5.0); BLOOD UREA NITROGEN 8.4 mg/dL (7-18); CALCIUM 8.3 mg/dL (8.5-10.1); MAGNESIUM 1.9 mg/dL (1.8-2.4)
[2021-12-24 07:45] LABS: CREATININE 0.9 mg/dL (0.55-1.3); PHOSPHOROUS 1.9 mg/dL (2.5-4.9)
[2021-12-24 07:47] LABS: TOT PROT 4.9 g/dl (6.4-8.2)
[2021-12-24] MEDS ORDERED: DEXTROSE 5%-WATER - 50 ML IVPB ONE (08:35)
[2021-12-24] MEDS ORDERED: cefTRIAXone SODIUM 1 GM VIAL ONE (08:35)
[2021-12-24] MEDS: POTASSIUM CHLORIDE 40 MEQ in DEXTROSE 5%-LACTATED RINGERS 980 ML IV SCH (09:17)
[2021-12-24] MEDS: CEFTRIAXONE 1 GM in DEXTROSE 5%-WATER - 50 ML IVPB SCH (09:17)
[2021-12-24] MEDS: ENOXAPARIN NA (PORCINE) 40 MG/0.4 ML DISP.SYRIN SQ SCH (09:18)
[2021-12-24] MEDS: PANTOPRAZOLE 40 MG TABLET PO SCH (09:33)
[2021-12-25] MEDS: INSULIN SLIDING SCALE (NOVOLOG) 1 VIAL SQ SCH ×4 (06:23→23:48)
[2021-12-25 07:47] LABS: BASO % 0.8 % (0-2.0); EOS % 3.1 % (0-4.5); HEMATOCRIT 35.3 % (35.4-49); LYMPH % 19.5 % (8-40); MCH 28.8 pg (25.7-33.7); MEAN CELL VOLUME 84.9 fl (80-96); MEAN PLT VOLUME 10.1 fl (7.5-11.1); MONO % 12.6 % (3.8-10.2); PLATELET COUNT 307 10^3/uL (134-434); RBC 4.15 M/mm3 (4.00-5.60); RDW 14.2 % (11.9-15.9); WHITE BLOOD COUNT 5.5 K/mm3 (4.0-10.0)
[2021-12-25 08:21] LABS: ALBUMIN 2.6 g/dl (3.4-5.0)
[2021-12-25 08:22] LABS: BLOOD UREA NITROGEN 6.4 mg/dL (7-18); CREATININE 0.9 mg/dL (0.55-1.3)
[2021-12-25 08:23] LABS: BILIRUBIN,TOTAL 1.1 mg/dL (0.2-1); TOT PROT 4.9 g/dl (6.4-8.2)
[2021-12-25 08:26] LABS: CALCIUM 8.2 mg/dL (8.5-10.1); MAGNESIUM 1.8 mg/dL (1.8-2.4)
[2021-12-25] MEDS: POTASSIUM CHLORIDE 40 MEQ in DEXTROSE 5%-LACTATED RINGERS 980 ML IV SCH (08:30)
[2021-12-25] MEDS ORDERED: cefTRIAXone SODIUM 1 GM VIAL ONE (09:30)
[2021-12-25] MEDS ORDERED: DEXTROSE 5%-WATER - 50 ML IVPB ONE (09:31)
[2021-12-25] MEDS: CEFTRIAXONE 1 GM in DEXTROSE 5%-WATER - 50 ML IVPB SCH (10:08)
[2021-12-25] MEDS: ENOXAPARIN NA (PORCINE) 40 MG/0.4 ML DISP.SYRIN SQ SCH (10:09)
[2021-12-25] MEDS: PANTOPRAZOLE 40 MG TABLET PO SCH (10:09)
[2021-12-26] MEDS: INSULIN SLIDING SCALE (NOVOLOG) 1 VIAL SQ SCH ×4 (06:41→21:31)
[2021-12-26 07:50] LABS: INR 1.26 (0.83-1.09); PROTHROMBIN TIME (PATIENT) 14.5 SEC (9.7-13.0)
[2021-12-26 08:06] LABS: CALCIUM 8.2 mg/dL (8.5-10.1)
[2021-12-26 08:07] LABS: ALBUMIN 2.6 g/dl (3.4-5.0); BLOOD UREA NITROGEN 4.8 mg/dL (7-18); MAGNESIUM 1.7 mg/dL (1.8-2.4)
[2021-12-26 08:10] LABS: CREATININE 0.9 mg/dL (0.55-1.3)
[2021-12-26 08:12] LABS: BASO % 1.1 % (0-2.0); BILIRUBIN,TOTAL 0.8 mg/dL (0.2-1); EOS % 3.8 % (0-4.5); HEMATOCRIT 36.2 % (35.4-49); HEMOGLOBIN 12.3 GM/dL (11.7-16.9); LYMPH % 16.7 % (8-40); MCH 28.9 pg (25.7-33.7); MEAN CELL VOLUME 84.8 fl (80-96); MEAN PLT VOLUME 10.4 fl (7.5-11.1); MONO % 11.6 % (3.8-10.2); NEUT % 66.8 % (42.8-82.8); PLATELET COUNT 304 10^3/uL (134-434); RBC 4.27 M/mm3 (4.00-5.60); WHITE BLOOD COUNT 5.8 K/mm3 (4.0-10.0)
[2021-12-26] MEDS: POTASSIUM CHLORIDE 40 MEQ in DEXTROSE 5%-LACTATED RINGERS 980 ML IV SCH ×2 (09:38→11:54)
[2021-12-26] MEDS ORDERED: DEXTROSE 5%-WATER - 50 ML IVPB ONE (09:42)
[2021-12-26] MEDS ORDERED: cefTRIAXone SODIUM 1 GM VIAL ONE (09:42)
[2021-12-26] MEDS: ENOXAPARIN NA (PORCINE) 40 MG/0.4 ML DISP.SYRIN SQ SCH (11:05)
[2021-12-26] MEDS: PANTOPRAZOLE 40 MG TABLET PO SCH (11:06)
[2021-12-26] MEDS ORDERED: MAGNESIUM OXIDE 400 MG TABLET (FP) PO ONE (13:12)
[2021-12-26] MEDS: CEFTRIAXONE 1 GM in DEXTROSE 5%-WATER - 50 ML IVPB SCH ×2 (13:12→13:13)
[2021-12-27] MEDS: INSULIN SLIDING SCALE (NOVOLOG) 1 VIAL SQ SCH ×4 (06:38→21:26)
[2021-12-27 07:34] LABS: INR 1.33 (0.83-1.09); PROTHROMBIN TIME (PATIENT) 15.3 SEC (9.7-13.0)
[2021-12-27 07:44] LABS: BASO % 0.8 % (0-2.0); EOS % 2.6 % (0-4.5); HEMATOCRIT 36.2 % (35.4-49); HEMOGLOBIN 12.2 GM/dL (11.7-16.9); LYMPH % 15.6 % (8-40); MCH 28.7 pg (25.7-33.7); MCHC 33.7 g/dl (32.0-35.9); MEAN PLT VOLUME 10.3 fl (7.5-11.1); MONO % 11.8 % (3.8-10.2); NEUT % 69.2 % (42.8-82.8); PLATELET COUNT 314 10^3/uL (134-434); RBC 4.26 M/mm3 (4.00-5.60); RDW 14.9 % (11.9-15.9)
[2021-12-27 07:47] LABS: ALBUMIN 2.7 g/dl (3.4-5.0); CALCIUM 8.3 mg/dL (8.5-10.1); MAGNESIUM 1.6 mg/dL (1.8-2.4)
[2021-12-27 07:48] LABS: BLOOD UREA NITROGEN 4.1 mg/dL (7-18)
[2021-12-27 07:51] LABS: CREATININE 0.9 mg/dL (0.55-1.3)
[2021-12-27 07:52] LABS: BILIRUBIN,TOTAL 1.2 mg/dL (0.2-1)
[2021-12-27] MEDS ORDERED: POTASSIUM CHLORIDE TABS 20 MEQ TABLET.ER (FP) PO ONE (08:06)
[2021-12-27] MEDS ORDERED: cefTRIAXone SODIUM 1 GM VIAL ONE (08:19)
[2021-12-27] MEDS ORDERED: DEXTROSE 5%-WATER - 50 ML IVPB ONE (08:20)
[2021-12-27] MEDS: CEFTRIAXONE 1 GM in DEXTROSE 5%-WATER - 50 ML IVPB SCH (09:00)
[2021-12-27] MEDS: PANTOPRAZOLE 40 MG TABLET PO SCH (09:26)
[2021-12-27] MEDS ORDERED: MAGNESIUM SULFATE IN WATER 2 GM/50 ML IVPB IVPB ONE (13:06)
[2021-12-27 14:23] LABS: PHOSPHOROUS 2.1 mg/dL (2.5-4.9)
[2021-12-28] MEDS: INSULIN SLIDING SCALE (NOVOLOG) 1 VIAL SQ SCH ×2 (06:20→22:00)
[2021-12-28] MEDS ORDERED: ONDANSETRON 4 MG/2 ML VIAL IVPUSH PRN ×4 (07:48→17:12)
[2021-12-28 07:49] LABS: CALCIUM 8.4 mg/dL (8.5-10.1)
[2021-12-28 07:50] LABS: ALBUMIN 2.8 g/dl (3.4-5.0); MAGNESIUM 2.1 mg/dL (1.8-2.4)
[2021-12-28 07:52] LABS: BLOOD UREA NITROGEN 4.7 mg/dL (7-18)
[2021-12-28 07:53] LABS: CREATININE 0.9 mg/dL (0.55-1.3)
[2021-12-28 07:54] LABS: BILIRUBIN,TOTAL 0.7 mg/dL (0.2-1); TOT PROT 5.4 g/dl (6.4-8.2)
[2021-12-28 08:04] LABS: BASO % 0.5 % (0-2.0); EOS % 3.3 % (0-4.5); HEMATOCRIT 37.2 % (35.4-49); HEMOGLOBIN 12.8 GM/dL (11.7-16.9); LYMPH % 14.1 % (8-40); MCH 29.4 pg (25.7-33.7); MCHC 34.5 g/dl (32.0-35.9); MEAN CELL VOLUME 85.2 fl (80-96); MEAN PLT VOLUME 10.1 fl (7.5-11.1); MONO % 12.6 % (3.8-10.2); NEUT % 69.5 % (42.8-82.8); PLATELET COUNT 311 10^3/uL (134-434); RBC 4.36 M/mm3 (4.00-5.60); RDW 15.1 % (11.9-15.9); WHITE BLOOD COUNT 6.5 K/mm3 (4.0-10.0)
[2021-12-28] MEDS ORDERED: TAMSULOSIN HCL 0.4 MG CAP PO SCH (08:30)
[2021-12-28] MEDS ORDERED: cefTRIAXone SODIUM 1 GM VIAL ONE (09:24)
[2021-12-28] MEDS ORDERED: DEXTROSE 5%-WATER - 50 ML IVPB ONE (09:24)
[2021-12-28] MEDS: PANTOPRAZOLE 40 MG TABLET PO SCH (09:54)
[2021-12-28] MEDS ORDERED: ENOXAPARIN NA (PORCINE) 40 MG/0.4 ML DISP.SYRIN SQ SCH (10:00)
[2021-12-28] MEDS ORDERED: CEFTRIAXONE 1 GM in DEXTROSE 5%-WATER - 50 ML IVPB SCH (10:00)
[2021-12-28] MEDS ORDERED: INSULIN SLIDING SCALE (NOVOLOG) 1 VIAL SQ SCH (11:00)
[2021-12-28] MEDS ORDERED: DEXTROSE 50%-WATER 25 GM/50 ML DISP.SYRIN ONE (11:55)
[2021-12-28] MEDS ORDERED: DEXTROSE 50%-WATER 25 GM/50 ML DISP.SYRIN IVPUSH ONE (12:11)
[2021-12-28] MEDS ORDERED: DEXTROSE 5%-WATER - 1,000 ML IV SCH ×2 (12:15→17:12)
[2021-12-28] MEDS ORDERED: BUPIVACAINE HCL/PF 0.25% (2.5MG/ML) 10 ML VIAL ONE (14:14)
[2021-12-28] MEDS ORDERED: PROPOFOL 20 ML ONE (14:47)
[2021-12-28] MEDS ORDERED: FENTANYL CITRATE/PF 50 MCG/ML VIAL ONE ×8 (14:47→17:29)
[2021-12-28] MEDS ORDERED: ROCURONIUM BROMIDE 50 MG/5 ML SYRINGE ONE (14:48)
[2021-12-28] MEDS ORDERED: BUPIVACAINE HCL/PF 2.5 MG/ML - 30 ML VIAL IJ ONE ×2 (15:36)
[2021-12-28 15:39] VITALS: BMI 22.4
[2021-12-28] MEDS ORDERED: SUGAMMADEX SODIUM 200 MG/2 ML VIAL ONE (15:59)
[2021-12-28] MEDS ORDERED: PROMETHAZINE HCL 25 MG/1 ML VIAL IVPUSH PRN ×2 (16:03→17:12)
[2021-12-28] MEDS ORDERED: GLYCOPYRROLATE 0.2 MG/1 ML VIAL ONE (16:06)
[2021-12-28] MEDS ORDERED: LACTATED RINGERS SOLUTION 1,000 ML IV SCH ×2 (16:15→17:12)
[2021-12-28] MEDS ORDERED: METOPROLOL TARTRATE 5 MG/5 ML VIAL ONE ×2 (16:18→16:38)
[2021-12-28] MEDS ORDERED: NEOSTIGMINE METHYLSULFATE 0.5 MG/1 ML - 10 ML MDV ONE (16:29)
[2021-12-28] MEDS ORDERED: ACETAMINOPHEN 325 MG TABLET (FP) PO PRN (17:12)
[2021-12-28] MEDS ORDERED: traMADol HCL 50 MG TABLET PO PRN (17:12)
[2021-12-28] MEDS ORDERED: HYDROmorphone HCl 2 MG/ML VIAL IVPUSH ONE ×3 (17:45→18:00)
[2021-12-28] MEDS ORDERED: HYDROmorphone HCl 2 MG/ML VIAL ONE (17:45)
[2021-12-28] MEDS ORDERED: HYDROmorphone HCl 2 MG/ML VIAL IVPUSH SCH (17:50)
[2021-12-28] MEDS ORDERED: ONDANSETRON 4 MG/2 ML VIAL ONE (19:30)
[2021-12-28] MEDS ORDERED: ONDANSETRON 4 MG/2 ML VIAL IVPUSH ONE (19:32)
[2021-12-29] MEDS: INSULIN SLIDING SCALE (NOVOLOG) 1 VIAL SQ SCH (06:25)
[2021-12-29 07:29] LABS: HEMATOCRIT 35.2 % (35.4-49); HEMOGLOBIN 11.7 GM/dL (11.7-16.9); MCH 28.7 pg (25.7-33.7); MCHC 33.3 g/dl (32.0-35.9); MEAN CELL VOLUME 86.2 fl (80-96); MEAN PLT VOLUME 10.7 fl (7.5-11.1); PLATELET COUNT 304 10^3/uL (134-434); RBC 4.08 M/mm3 (4.00-5.60); RDW 15.7 % (11.9-15.9); WHITE BLOOD COUNT 12.7 K/mm3 (4.0-10.0)
[2021-12-29 07:44] LABS: ALBUMIN 2.8 g/dl (3.4-5.0); CALCIUM 8.5 mg/dL (8.5-10.1)
[2021-12-29 07:45] LABS: BLOOD UREA NITROGEN 9.2 mg/dL (7-18)
[2021-12-29 07:47] LABS: CREATININE 1.1 mg/dL (0.55-1.3)
[2021-12-29 07:49] LABS: BILIRUBIN,TOTAL 0.8 mg/dL (0.2-1); TOT PROT 5.4 g/dl (6.4-8.2)
[2021-12-29] MEDS ORDERED: TAMSULOSIN HCL 0.4 MG CAP PO SCH (08:30)
[2021-12-29 09:11] VITALS: BP 102/59; PULSE 60; TEMP 97.8
[2021-12-29] MEDS ORDERED: PANTOPRAZOLE 40 MG TABLET PO SCH (10:00)
[2021-12-29] MEDS ORDERED: ENOXAPARIN NA (PORCINE) 40 MG/0.4 ML DISP.SYRIN SQ SCH (10:00)
== END 2021-12-29 13:49 | disposition home or self-care (01) | DRG 418 ==
LOC: JER 17:08 → JERBED 21:46 → J5S 12-22 03:21 → J4W 12-22 18:24
PROVIDERS: ADMIT Internal Medicine; ATTEND Nurse Practitioner Acute Care
PROC: 0FT44ZZ Resection of Gallbladder, Percutaneous Endoscopic Approach (ICD-10-PCS; principal; 2021-12-28 15:00)
DX: K85.10 Biliary acute pancreatitis without necrosis or infection (principal); G61.0 Guillain-Barre syndrome; K43.0 Incisional hernia with obstruction, without gangrene; N39.0 Urinary tract infection, site not specified; E78.5 Hyperlipidemia, unspecified; N40.0 Benign prostatic hyperplasia without lower urinary tract symptoms; E87.6 Hypokalemia; R73.03 Prediabetes; E80.6 Other disorders of bilirubin metabolism; I44.0 Atrioventricular block, first degree; K21.9 Gastro-esophageal reflux disease without esophagitis; K76.89 Other specified diseases of liver; K63.5 Polyp of colon; I11.0 Hypertensive heart disease with heart failure; I50.9 Heart failure, unspecified; R79.89 Other specified abnormal findings of blood chemistry
CPT/HCPCS: 36415; 71045-TC-FY; 74177-TC; 74181-TC; 76705-TC; 80048; 80053; 80061; 80076; 81003; 82150; 82962; 83036; 83605; 83690; 83735; 84100; 84132; 84484; 85025; 85610; 86140; 86705; 86803; 86850; 86900; 86901; 87340; 87517; 88304-TC; 93005; 93010; 93306-TC; 94760; 99291; 99292; C9803-CS; Q9967; U0003; U0005

== ENCOUNTER 2022-11-18 15:01 | Inpatient (IN) | payer OTHER ==
[2022-11-18 15:15] VITALS: BMI 22.7
[2022-11-18] MEDS ORDERED: ACETAMINOPHEN 1000 MG/100 ML BAG IVPB ONE (16:02)
[2022-11-18] MEDS ORDERED: FAMOTIDINE 20 MG/50 ML IVPB 20 MG/50 ML MG IVPB ONE ×2 (16:02→16:22)
[2022-11-18] MEDS ORDERED: ACETAMINOPHEN INJECTION 100 ML IVPB ONE (16:22)
[2022-11-18] MEDS: LACTATED RINGERS SOLUTION 1,000 ML/1,000 ML INFUS.BAG IV SCH (17:21)
[2022-11-18 17:42] LABS: INR 1.26 (0.83-1.09); PROTHROMBIN TIME (PATIENT) 14.6 SEC (9.7-13.0)
[2022-11-18 17:45] LABS: ACTIVATED PTT 29.4 SECONDS (25.2-36.5)
[2022-11-18 17:55] LABS: POTASSIUM 5.3 mmol/L (3.5-5.1)
[2022-11-18 17:57] LABS: CALCIUM 10.4 mg/dL (8.5-10.1)
[2022-11-18 17:58] LABS: ALBUMIN 3.3 g/dl (3.4-5.0); HEMATOCRIT 41.2 % (35.4-49); HEMOGLOBIN 13.7 GM/dL (11.7-16.9); MCH 25.2 pg (25.7-33.7); MCHC 33.2 g/dl (32.0-35.9); MEAN CELL VOLUME 75.9 fl (80-96); MEAN PLT VOLUME 9.8 fl (7.5-11.1); PLATELET COUNT 702 10^3/uL (134-434); RBC 5.43 M/mm3 (4.00-5.60); RDW 16.2 % (11.9-15.9); WHITE BLOOD COUNT 19.4 K/mm3 (4.0-10.0)
[2022-11-18 18:01] LABS: CREATININE 1.2 mg/dL (0.55-1.3)
[2022-11-18 18:02] LABS: TOT PROT 6.3 g/dl (6.4-8.2)
[2022-11-18 19:02] LABS: ANISOCYTOSIS 1+; MACROCYTOSIS 1+; PLATELET ESTIMATE INCREASED
[2022-11-18] MEDS ORDERED: chlorproMAZINE HCL 25 MG TABLET PO ONE (20:55)
[2022-11-18] MEDS ORDERED: PANTOPRAZOLE SODIUM 40 MG VIAL IVPB ONE (21:14)
[2022-11-18] MEDS ORDERED: PANTOPRAZOLE SODIUM 40 MG VIAL ONE (21:26)
[2022-11-19] MEDS ORDERED: CEFTRIAXONE 2 GM in DEXTROSE 5%-WATER - 50 ML IVPB ONE (02:08)
[2022-11-19] MEDS ORDERED: CEFTRIAXONE 2 GM-D5W BAG 2 GM/50 ML BAG IVPB ONE (02:11)
[2022-11-19] MEDS ORDERED: CEFTRIAXONE 2 GM in DEXTROSE 5%-WATER 100 ML IVPB ONE (02:13)
[2022-11-19] MEDS ORDERED: CEFTRIAXONE 2 GM/100 ML BAG IVPB ONE (02:41)
[2022-11-19 02:50] LABS: HEMATOCRIT 32.3 % (35.4-49); HEMOGLOBIN 10.9 GM/dL (11.7-16.9); MCH 25.3 pg (25.7-33.7); MCHC 33.8 g/dl (32.0-35.9); MEAN CELL VOLUME 74.8 fl (80-96); MEAN PLT VOLUME 9.6 fl (7.5-11.1); PLATELET COUNT 619 10^3/uL (134-434); RBC 4.32 M/mm3 (4.00-5.60); WHITE BLOOD COUNT 17.8 K/mm3 (4.0-10.0)
[2022-11-19 03:51] LABS: LACTIC ACID 2.2 mmol/L (0.4-2.0)
[2022-11-19] MEDS: PANTOPRAZOLE SODIUM 40 MG VIAL IVPUSH SCH ×3 (04:24→21:05)
[2022-11-19] MEDS ORDERED: SODIUM CHLORIDE 1,000 ML IV SCH (09:30)
[2022-11-19 10:11] LABS: HEMOGLOBIN 10.9 GM/dL (11.7-16.9); MCH 25.2 pg (25.7-33.7); MCHC 33.1 g/dl (32.0-35.9); MEAN PLT VOLUME 9.7 fl (7.5-11.1); PLATELET COUNT 633 10^3/uL (134-434); RBC 4.34 M/mm3 (4.00-5.60); RDW 15.8 % (11.9-15.9); WHITE BLOOD COUNT 16.4 K/mm3 (4.0-10.0)
[2022-11-19] MEDS ORDERED: ALBUTEROL SO4 HFA INHALER IH PRN (11:22)
[2022-11-19 11:36] LABS: POTASSIUM 4.3 mmol/L (3.5-5.1)
[2022-11-19 11:39] LABS: CALCIUM 9.8 mg/dL (8.5-10.1)
[2022-11-19 11:40] LABS: ALBUMIN 2.8 g/dl (3.4-5.0); BLOOD UREA NITROGEN 60.6 mg/dL (7-18); MAGNESIUM 1.7 mg/dL (1.8-2.4)
[2022-11-19 11:42] LABS: CREATININE 1.2 mg/dL (0.55-1.3)
[2022-11-19 11:43] LABS: PHOSPHOROUS 3.6 mg/dL (2.5-4.9)
[2022-11-19 11:44] LABS: BILIRUBIN,TOTAL 0.7 mg/dL (0.2-1); TOT PROT 5.2 g/dl (6.4-8.2)
[2022-11-19 12:37] LABS: HEMOGLOBIN 11.4 GM/dL (11.7-16.9); MCH 25.1 pg (25.7-33.7); MCHC 33.5 g/dl (32.0-35.9); MEAN PLT VOLUME 9.7 fl (7.5-11.1); PLATELET COUNT 661 10^3/uL (134-434); RBC 4.53 M/mm3 (4.00-5.60); RDW 15.9 % (11.9-15.9); WHITE BLOOD COUNT 17.1 K/mm3 (4.0-10.0)
[2022-11-19] MEDS: TAMSULOSIN HCL 0.4 MG CAP PO SCH (13:05)
[2022-11-19] MEDS: LACTATED RINGERS SOLUTION 1,000 ML/1,000 ML INFUS.BAG IV SCH (17:59)
[2022-11-19 18:03] LABS: HEMATOCRIT 31.2 % (35.4-49); HEMOGLOBIN 10.4 GM/dL (11.7-16.9); MCH 25.1 pg (25.7-33.7); MCHC 33.4 g/dl (32.0-35.9); MEAN CELL VOLUME 75.2 fl (80-96); MEAN PLT VOLUME 9.3 fl (7.5-11.1); PLATELET COUNT 595 10^3/uL (134-434); RBC 4.14 M/mm3 (4.00-5.60)
[2022-11-19] MEDS: DEXTROSE 5%-0.45% SALINE 1,000 ML IV SCH (21:05)
[2022-11-20 04:47] LABS: EPI CELLS 34 /uL (0-25.1); HYALINE CASTS 1 /uL (0-3.1); PH,URINE 5.5 (5.0-8.0); URINE APPEARANCE CLEAR; URINE BACTERIA 23 /uL (0-1359); URINE BILIRUBIN NEGATIVE (NEGATIVE); URINE COLOR YELLOW; URINE GLUCOSE (UA) NEGATIVE (NEGATIVE); URINE KETONE NEGATIVE (NEGATIVE); URINE LEUK ESTERASE 2+ (NEGATIVE); URINE NITRITE NEGATIVE (NEGATIVE); URINE PROTEIN NEGATIVE (NEGATIVE); URINE RBC 25 /uL (0-23.9); URINE UROBILINOGEN 0.2 mg/dL (0.2-1.0); URINE WBC 240 /uL (0-25.8)
[2022-11-20] MEDS: CEFTRIAXONE 2 GM in DEXTROSE 5%-WATER 100 ML IVPB SCH (09:53)
[2022-11-20] MEDS: PANTOPRAZOLE SODIUM 40 MG VIAL IVPUSH SCH (09:54)
[2022-11-20] MEDS: TAMSULOSIN HCL 0.4 MG CAP PO SCH (09:54)
[2022-11-20 11:40] LABS: BASO % 0.9 % (0-2.0); EOS % 1.5 % (0-4.5); LYMPH % 12.9 % (8-40); MCH 25.8 pg (25.7-33.7); MCHC 34.5 g/dl (32.0-35.9); MEAN CELL VOLUME 74.8 fl (80-96); MEAN PLT VOLUME 9.5 fl (7.5-11.1); MONO % 10.4 % (3.8-10.2); NEUT % 74.3 % (42.8-82.8); PLATELET COUNT 506 10^3/uL (134-434); RBC 3.48 M/mm3 (4.00-5.60); RDW 15.7 % (11.9-15.9); WHITE BLOOD COUNT 9.2 K/mm3 (4.0-10.0)
[2022-11-20 11:50] LABS: INR 1.3 (0.83-1.09)
[2022-11-20 11:52] LABS: ACTIVATED PTT 27.6 SECONDS (25.2-36.5)
[2022-11-20 11:59] LABS: POTASSIUM 3.9 mmol/L (3.5-5.1)
[2022-11-20 12:24] LABS: ALBUMIN 2.5 g/dl (3.4-5.0); CREATININE 1.2 mg/dL (0.55-1.3)
[2022-11-20 12:25] LABS: BILIRUBIN,TOTAL 0.8 mg/dL (0.2-1); BLOOD UREA NITROGEN 40.4 mg/dL (7-18)
[2022-11-20 12:26] LABS: TOT PROT 4.6 g/dl (6.4-8.2)
[2022-11-20 12:28] LABS: CALCIUM 8.9 mg/dL (8.5-10.1); PHOSPHOROUS 3.4 mg/dL (2.5-4.9)
[2022-11-21] MEDS: DEXTROSE 5%-0.45% SALINE 1,000 ML IV SCH ×2 (02:02→08:10)
[2022-11-21] MEDS: PANTOPRAZOLE 40 MG TABLET PO SCH (09:40)
[2022-11-21] MEDS: TAMSULOSIN HCL 0.4 MG CAP PO SCH (09:40)
[2022-11-21] MEDS ORDERED: PEG 3350/NA SULF BICARB CL/KCL 4000 ML SOLN.RECON PO ONE (10:00)
[2022-11-21 10:42] LABS: BASO % 0.7 % (0-2.0); EOS % 2.8 % (0-4.5); HEMATOCRIT 24.5 % (35.4-49); HEMOGLOBIN 8.4 GM/dL (11.7-16.9); LYMPH % 9.3 % (8-40); MCH 25.9 pg (25.7-33.7); MCHC 34.1 g/dl (32.0-35.9); MEAN CELL VOLUME 75.8 fl (80-96); MEAN PLT VOLUME 8.9 fl (7.5-11.1); MONO % 11.2 % (3.8-10.2); PLATELET COUNT 480 10^3/uL (134-434); RBC 3.24 M/mm3 (4.00-5.60); RDW 15.8 % (11.9-15.9); WHITE BLOOD COUNT 8.7 K/mm3 (4.0-10.0)
[2022-11-21 11:00] LABS: POTASSIUM 3.8 mmol/L (3.5-5.1)
[2022-11-21] MEDS: CEFTRIAXONE 2 GM in DEXTROSE 5%-WATER 100 ML IVPB SCH (11:00)
[2022-11-21 11:03] LABS: ALBUMIN 2.4 g/dl (3.4-5.0); CALCIUM 8.6 mg/dL (8.5-10.1)
[2022-11-21 11:04] LABS: BLOOD UREA NITROGEN 24.3 mg/dL (7-18)
[2022-11-21 11:08] LABS: CREATININE 1.2 mg/dL (0.55-1.3)
[2022-11-21 11:09] LABS: BILIRUBIN,TOTAL 0.7 mg/dL (0.2-1); TOT PROT 4.5 g/dl (6.4-8.2)
[2022-11-21] MEDS ORDERED: PHYTONADIONE 10 MG/1 ML AMP IVPB ONE (15:36)
[2022-11-21] MEDS ORDERED: BISACODYL 5 MG TABLET.DR (FP) PO ONE (20:00)
[2022-11-21] MEDS ORDERED: ATORVASTATIN CA 20 MG TABLET (FP) PO SCH (22:00)
[2022-11-22] MEDS: TAMSULOSIN HCL 0.4 MG CAP PO SCH (08:48)
[2022-11-22 10:06] LABS: BASO % 0.5 % (0-2.0); EOS % 3.1 % (0-4.5); HEMATOCRIT 25.8 % (35.4-49); HEMOGLOBIN 8.9 GM/dL (11.7-16.9); INR 1.35 (0.83-1.09); LYMPH % 9.1 % (8-40); MCHC 34.6 g/dl (32.0-35.9); MEAN CELL VOLUME 75.1 fl (80-96); MEAN PLT VOLUME 9.8 fl (7.5-11.1); MONO % 8.7 % (3.8-10.2); NEUT % 78.6 % (42.8-82.8); PLATELET COUNT 502 10^3/uL (134-434); PROTHROMBIN TIME (PATIENT) 15.6 SEC (9.7-13.0); RBC 3.43 M/mm3 (4.00-5.60); RDW 15.7 % (11.9-15.9); WHITE BLOOD COUNT 9.6 K/mm3 (4.0-10.0)
[2022-11-22 10:23] LABS: POTASSIUM 3.6 mmol/L (3.5-5.1)
[2022-11-22] MEDS: PANTOPRAZOLE 40 MG TABLET PO SCH (12:01)
[2022-11-22] MEDS: CEFTRIAXONE 2 GM in DEXTROSE 5%-WATER 100 ML IVPB SCH (12:01)
[2022-11-22] MEDS ORDERED: FUROSEMIDE 40 MG/4 ML INJECTABLE VIAL IVPUSH ONE (16:51)
[2022-11-22 17:01] VITALS: PULSE 64; RESP 18
[2022-11-22 19:01] VITALS: BP 110/57; TEMP 98
[2022-11-23] MEDS ORDERED: FUROSEMIDE 40 MG TABLET (FP) PO SCH (10:00)
== END 2022-11-22 19:07 | disposition home health service (06) | DRG 378 ==
LOC: JER 15:01 → JERBED 23:44 → J5S 11-19 03:19
PROVIDERS: ADMIT Internal Medicine; ATTEND Internal Medicine
PROC: 0DB78ZX Excision of Stomach, Pylorus, Via Natural or Artificial Opening Endoscopic, Diagnostic (ICD-10-PCS; principal; 2022-11-20 14:00)
PROC: 0DJD8ZZ Inspection of Lower Intestinal Tract, Via Natural or Artificial Opening Endoscopic (ICD-10-PCS; 2022-11-22)
DX: K92.2 Gastrointestinal hemorrhage, unspecified (principal); E87.20 Acidosis, unspecified; G61.0 Guillain-Barre syndrome; J98.11 Atelectasis; I44.7 Left bundle-branch block, unspecified; K44.9 Diaphragmatic hernia without obstruction or gangrene; I10 Essential (primary) hypertension; E78.5 Hyperlipidemia, unspecified; K21.9 Gastro-esophageal reflux disease without esophagitis; K25.3 Acute gastric ulcer without hemorrhage or perforation; D72.829 Elevated white blood cell count, unspecified; R11.11 Vomiting without nausea; I11.0 Hypertensive heart disease with heart failure; I50.9 Heart failure, unspecified; K43.9 Ventral hernia without obstruction or gangrene; R10.13 Epigastric pain; N40.0 Benign prostatic hyperplasia without lower urinary tract symptoms; R73.03 Prediabetes; I44.0 Atrioventricular block, first degree; K57.90 Diverticulosis of intestine, part unspecified, without perforation or abscess without bleeding; K52.89 Other specified noninfective gastroenteritis and colitis
CPT/HCPCS: 0241U-QW; 36415; 71046-TC-FY; 74177-TC; 80048; 80053; 81003; 82272; 82728; 83540; 83550; 83605; 83690; 83735; 84100; 84484; 85025; 85027; 85610; 85730; 86850; 86900; 86901; 87040; 87086; 88305-TC; 93005; 93010; 99285-25; Q9967

== ENCOUNTER 2023-08-23 04:13 | Day surgery (SDC) | payer OTHER ==
[2023-08-20 14:12] VITALS: BMI 21.6
[2023-08-23] MEDS ORDERED: SIMETHICONE 40 MG/0.6 ML BOTTLE ONE (07:26)
[2023-08-23 08:13] VITALS: TEMP 97.1
[2023-08-23 08:25] VITALS: RESP 20
[2023-08-23 08:39] VITALS: PULSE 67
[2023-08-23 08:45] VITALS: BP 124/61
== END 2023-08-23 08:49 | disposition home or self-care (01) ==
LOC: JASU-ENDO 04:13
PROVIDERS: ATTEND Internal Medicine Gastroenterology
PROC: 0DB78ZX Excision of Stomach, Pylorus, Via Natural or Artificial Opening Endoscopic, Diagnostic (ICD-10-PCS; 2023-08-23)
PROC: 0DB68ZX Excision of Stomach, Via Natural or Artificial Opening Endoscopic, Diagnostic (ICD-10-PCS; principal; 2023-08-23 08:00)
DX: K29.50 Unspecified chronic gastritis without bleeding (principal); I10 Essential (primary) hypertension
CPT/HCPCS: 88305-TC; 88342-TC